=== PATIENT | male | born 1970 | race Caucasian/White ===

== ENCOUNTER 2019-11-30 21:09 | Emergency (ER) | payer MEDICARE ==
[2019-11-30] MEDS ORDERED: NORCO 5/325 MG PO ONE (21:31)
[2019-11-30] MEDS ORDERED: NORCO 5/325 MG ONE (21:35)
--- NOTE | 2019-11-30 21:35 | ERPHSYRPT ---
- History of Present Illness Time Seen by Provider: 11/30/19 21:20 Source: patient Exam Limitations: no limitations Patient Subjective Stated Complaint: pt states that he was working in the yard today when he stepped his foot in a hole and twisted his knee, pt states that he continued to walk on it but the pain has increased throughout the day, pt states that his knee is swollen and warm, pt states that left knee pops everytime it moves Triage Nursing Assessment: pt was wheeled into the er, pt is axo x4, pain 10/10 to left knee, tenderness present to left knee, no swelling present, warm to the touch, limited ROM to left knee, c/o numbness to left knee Physician History: The patient is a 48-year-old male who presents with a chief complaint of left knee pain. Onset was 1500 this afternoon. He reportedly was walking through his yard when he stepped in what is believed to be a hole and "twisted" his left knee. He stated that he felt the pain in the medial aspect of the left knee but was able to weight-bear on the affected extremity for some time until this evening when the pain became worse to the point where he was having trouble weightbearing. The pain is described as a sharp/throbbing pain located to the medial aspect of his left knee that is nonradiating and constant. The pain is reportedly severe. He reports that he is not take anything for pain prior to arrival to emergency department and a family member is outside and providing transportation. He denies falls or any additional injuries this afternoon. He denies injuring the left knee in the past. Timing/Duration: today Associated Symptoms: No nausea, No vomiting Allergies/Adverse Reactions: No Known Drug Allergies Allergy (Unverified 11/30/19 21:24) Hx Tetanus, Diphtheria Vaccination/Date Given: Yes Hx Influenza Vaccination/Date Given: Yes Hx Pneumococcal Vaccination/Date Given: Yes Travel Risk - International Travel Have you traveled outside of the country in past 3 weeks: No If Yes where:: [facility] [place] - Coronavirus Screening Has patient experienced Coronavirus symptoms: No - Review of Systems Constitutional: No Fever, No Chills Musculoskeletal: Injury, Other (Left knee pain), No Deformity All Other Systems: Reviewed and Negative - Past Medical History Pertinent Past Medical History: Yes Neurological History: Migraines ENT History: Other Cardiac History: Aneurysm, Angina, Coronary Artery Disease, Myocardial Infarction ([place]) Respiratory History: Asthma, COPD Endocrine Medical History: No Pertinent History Musculoskeletal History: Fractures GI Medical History: Diverticulitis History: No Pertinent History Psycho-Social History: No Pertinent History Male Reproductive Disorders: No Pertinent History Other Medical History: difficulty hearing. Reports [place]- echo wnl 2015 - Past Surgical History Past Surgical History: Yes Cardiac: Cardiac Catheterization Musculoskeletal: Orthopedic Surgery Other Surgical History: back, knee, wrist, updated - Social History Smoking Status: Current every day smoker How long have you smoked: 31 Exposure to second hand smoke: Yes Alcohol Use: Socially Drug Use: none Patient Lives Alone: No Significant Family History: heart disease, hypertension - Nursing Vital Signs Nursing Vital Signs: Initial Vital Signs Temperature 98.3 F 11/30/19 21:12 Pulse Rate 99 H 11/30/19 21:12 Respiratory Rate 15 11/30/19 21:12 Blood Pressure 170/96 11/30/19 21:12 O2 Sat by Pulse Oximetry 96 11/30/19 21:12 Pain Scale Pain Intensity 6 - Physical Exam General Appearance: no apparent distress, alert Eye Exam: No scleral icterus, No pale conjunctivae Neck Exam: supple Respiratory Exam: normal breath sounds, lungs clear, airway intact, No chest tenderness, No respiratory distress Cardiovascular Exam: regular rate/rhythm, normal heart sounds, capillary refill <2 sec, other (DP and PT was 2+. Capillary refill was brisk in all toes of the left foot.), No murmur, No friction rub, No gallop Gastrointestinal/Abdomen Exam: soft Extremity Exam: normal inspection, tenderness, other (Knee was inspected and there appeared to be no evidence of a visible deformity or swelling. He had tenderness mainly to the medial aspect of the left knee along the MCL but there was no laxity noted with valgus or varus stressing. He was able to extend the left knee and lift the entire left leg off the bed without difficulty. There was increased knee pain with axial loading the left knee/Apley's grind test. I did not feel any clicks or pops with passive flexion and extension of the knee and the patient's Lockman's test was negative. There was no significant tenderness upon palpation of the tibial plateau and the anterior and posterior drawer sign was negative. No significant tenderness upon palpation of the patella. Motor function was intact in the left foot.), No joint swelling, No pedal edema, No swelling Neurologic Exam: alert, oriented x 3, cooperative, other (Sensation in a L4, L5 and S1 nerve root distributions of the left foot was intact.) SpO2: 96 Procedures - Splinting Location of Splint: Knee Type of Splint: Other (Knee immobilizer) Splint Applied By: ED Nurse Pre-Proc Neuro Vasc Exam: normal Post-Proc Neuro Vasc Exam: neurovascular intact, unchanged from pre-exam - Course Nursing assessment & vital signs reviewed: Yes - Radiology Exams Knee X-ray Interpretation: Interpreted by me, Reviewed by me, Negative Ordered Tests: Active Orders 24 hr Category Date Time Status Vance Bandage Application -[facility] STAT Care 11/30/19 22:59 Active Cold Application STAT Care 11/30/19 21:33 Active Crutches STAT Care 11/30/19 22:59 Active Immobilizer STAT Care 11/30/19 22:59 Active Isolation, Initiate & Maintain Q4H Care 11/30/19 21:23 Active KNEE (1 OR 2 VIEW) Stat Exams 11/30/19 21:30 Ordered Medication Summary Discontinued Medications Generic Name Dose Route Start Last Admin Trade Name Terese PRN Reason Stop Dose Admin Hydrocodone Bitart/Acetaminophen 2 tab 11/30/19 21:31 11/30/19 21:37 Harvey 5/325 Mg PO 11/30/19 21:32 2 tab STAT ONE Administration Hydrocodone Bitart/Acetaminophen Confirm 11/30/19 21:35 Harvey 5/325 Mg Administered 11/30/19 21:36 Dose 2 tab .ROUTE .STK-MED ONE - Progress Progress: improved Progress Note: 11/30/19 22:15 The patient presents with left knee pain after reportedly stepping in a hole in his backyard and "twisting" the left knee. Differential at this time includes MCL injury, meniscal injury, fracture, strain or sprain. I have a low suspicion for knee dislocation at this time. I also have a low suspicion for a tibial plateau fracture as well. To obtain a x-ray of the left knee for evaluation and if within normal limits I will see if he can weight-bear on the left knee after receiving Harvey for pain. Given that he has some instability of the left knee, I plan to discharge him home if his x-rays are relatively benign with a knee immobilizer and crutches and have him follow-up in the orthopedic clinic as an outpatient. 11/30/19 23:23 X-ray was reviewed and appeared to show no evidence of fracture or dislocation. The knee was immobilized in a knee immobilizer and given that he reported some instability with walking. I then personally had him demonstrate the ability to weight-bear on the affected knee and he was able to do so with some reported pain but he states that he was feeling better now it is immobilized and after receiving Harvey. I instructed him to follow-up with the orthopedics clinic at this facility this week and to not wear the knee immobilizer while at rest and only wear it whenever he is ambulating. I also instructed him not to wear it any longer than a week due to the risk of developing atrophy to the quadriceps. I will prescribe a short course of Harvey to take as needed for pain. He agreed with and verbally understood the discharge plan. Counseled pt/family regarding: diagnosis, need for follow-up, rad results - Departure Departure Disposition: Home Clinical Impression: Knee pain, left Condition: Good Critical Care Time: No Referrals: ORTHO - KATIE LORA NP [NON-STAFF PHY W/O PRIVILEGES] - Instructions: How to Use Crutches, Knee Immobilizer (DC), Knee Pain (DC) Additional Instructions: Please follow-up with the ortho clinic within a week. Forms: Ortho Referral Prescriptions: Hydrocodone/APAP 5/325 [Harvey 5/325 mg] 1 each PO Q6H PRN PRN #16 tablet MDD 6 PRN Reason: Pain
[2019-11-30 23:07] VITALS: BP 157/85; PULSE 86
[2019-11-30 23:27] VITALS: O2SAT 96
--- NOTE | 2019-12-01 08:43 | XRAY ---
Indication: Pain. Comparison: None AP/lateral left knee demonstrates minimal medial joint space narrowing and tiny patella spurring. No other bony, articular, or soft tissue abnormalities.
== END 2019-11-30 23:15 | disposition home or self-care (01) ==
LOC: ED 21:09
DX: M25.562 Pain in left knee (principal); X50.1XXA Overexertion from prolonged static or awkward postures, initial encounter; Y93.89 Activity, other specified; Y92.89 Other specified places as the place of occurrence of the external cause
CPT/HCPCS: 73560; 99284; L1830; A9270-GY

== ENCOUNTER 2020-02-16 09:18 | Emergency (ER) | payer MEDICARE ==
[2020-02-16 09:48] VITALS: O2SAT 98
[2020-02-16] MEDS ORDERED: solu-MEDROL 125 MG IM ONE (10:09)
[2020-02-16] MEDS ORDERED: solu-MEDROL 125 MG ONE (10:12)
--- NOTE | 2020-02-16 10:15 | ERPHSYRPT ---
- History of Present Illness Time Seen by Provider: 02/16/20 10:09 Source: patient Exam Limitations: no limitations Patient Subjective Stated Complaint: pt here for a chronic rash to hands and feet Triage Nursing Assessment: pt has rash to hadns and feet with skin sloughing on left foot, he has this for [address] 2 weeks ago and given meds, he states they drain at times Physician History: 49 yo wm w h/o pemphigus presents w an outbreak x 5 wks. Pt has seen PCP w steroid injection x2. Pt states that rash is painful and pruritic. He has contacted his rehabilitation supervisor ans is waiting for an appointment. He denies fever/chills/N/V/cough. Timing/Duration: other (5wks) Location: generalized Possible Causes: other (pemphigus) Associated Symptoms: blisters, No change in skin texture, No difficulty breathing, No edema, No fever, No flushing, No headache, No hives, No jaundice, No malaise, No nasal congestion, No numbness, No pallor, No paresthesia, No petechiae Allergies/Adverse Reactions: No Known Drug Allergies Allergy (Verified 02/16/20 09:48) Hx Tetanus, Diphtheria Vaccination/Date Given: Yes Hx Influenza Vaccination/Date Given: Yes Hx Pneumococcal Vaccination/Date Given: Yes Immunizations Up to Date: Yes Travel Risk - International Travel Have you traveled outside of the country in past 3 weeks: No - Coronavirus Screening Are you exhibiting any of the following symptoms?: No Close contact with a COVID-19 positive Pt in past 14-21 Days: No - Review of Systems Constitutional: No Symptoms Eyes: No Symptoms Ears, Nose, & Throat: No Symptoms Respiratory: No Symptoms Cardiac: No Symptoms Abdominal/Gastrointestinal: No Symptoms Genitourinary Symptoms: No Symptoms Musculoskeletal: No Symptoms Neurological: No Symptoms Psychological: No Symptoms Endocrine: No Symptoms Hematologic/Lymphatic: No Symptoms Immunological/Allergic: No Symptoms - Past Medical History Pertinent Past Medical History: Yes Neurological History: Migraines ENT History: Other Cardiac History: Aneurysm, Angina, Coronary Artery Disease, Myocardial Infarction ([place]) Respiratory History: Asthma, COPD Endocrine Medical History: No Pertinent History Musculoskeletal History: Fractures GI Medical History: Diverticulitis History: No Pertinent History Psycho-Social History: No Pertinent History Male Reproductive Disorders: No Pertinent History Other Medical History: difficulty hearing. Reports [place]- echo wnl 2014,knee problesm 2019 - Past Surgical History Past Surgical History: Yes Cardiac: Cardiac Catheterization Musculoskeletal: Orthopedic Surgery Other Surgical History: back, knee, wrist, updated - Social History Smoking Status: Current every day smoker How long have you smoked: 31 Exposure to second hand smoke: Yes Alcohol Use: Socially Drug Use: none Patient Lives Alone: No Significant Family History: heart disease, hypertension - Nursing Vital Signs Nursing Vital Signs: Initial Vital Signs Pulse Rate 71 02/16/20 09:42 Respiratory Rate 18 02/16/20 09:42 Blood Pressure 144/98 02/16/20 09:42 O2 Sat by Pulse Oximetry 97 02/16/20 09:42 Pain Scale Pain Intensity 5 - Physical Exam General Appearance: no apparent distress Eye Exam: PERRL/EOMI, eyes nml inspection Ears, Nose, Throat Exam: normal ENT inspection, TMs normal, pharynx normal Neck Exam: normal inspection, non-tender, supple, No meningismus, No mass, No Brudzinski, No Kernig's Respiratory Exam: other (Occ wheeze and rhonchi B) Cardiovascular Exam: regular rate/rhythm, normal heart sounds, normal peripheral pulses Gastrointestinal/Abdomen Exam: soft, normal bowel sounds, No tenderness, No distention Back Exam: normal inspection Extremity Exam: normal inspection Neurologic Exam: alert, oriented x 3, cooperative, pool coordinator II-XII nml as tested, normal mood/affect, nml station & gait, sensation nml, No motor deficits, No sensory deficit Skin Exam: other (Generalized bullae in various stages/No exudate/No evidence of cellulitis) SpO2 Interpretation: normal SpO2: 98 O2 Delivery: Room Air - Course Nursing assessment & vital signs reviewed: Yes Ordered Tests: Medication Summary Discontinued Medications Generic Name Dose Route Start Last Admin Trade Name Freq PRN Reason Stop Dose Admin Methylprednisolone Sodium Succinate 125 mg 02/16/20 10:09 02/16/20 10:13 Solu-Medrol 125 Mg IM 02/16/20 10:10 125 mg STAT ONE Administration Methylprednisolone Sodium Succinate Confirm 02/16/20 10:12 Solu-Medrol 125 Mg Administered 02/16/20 10:13 Dose 125 mg .ROUTE .STK-MED ONE - Progress Progress: unchanged Progress Note: 02/16/20 10:16 125mg IM solumedrol/Tapering course of steroids Counseled pt/family regarding: need for follow-up - Departure Departure Disposition: Home Clinical Impression: Pemphigus Condition: Fair Critical Care Time: No Referrals: ESE MARRERO MD [Primary Care Provider] - Instructions: Bullous Pemphigoid Additional Instructions: Follow up with your rehabilitation supervisor in AM Prescriptions: Prednisone 20 mg [Deltasone 20 mg] 20 mg PO BID 5 Days #10 tablet
[2020-02-16 10:28] VITALS: BP 149/102; PULSE 78
== END 2020-02-16 10:33 | disposition home or self-care (01) ==
LOC: ED 09:18
DX: L10.9 Pemphigus, unspecified (principal)
CPT/HCPCS: 96372; 99283; J2930

== ENCOUNTER 2020-10-05 03:31 | Emergency (ER) | payer MEDICARE ==
[2020-10-05] MEDS ORDERED: Sodium Chloride 0.9% 1000 ML 1,000 ML IV STA (03:48)
[2020-10-05] MEDS ORDERED: ROCEPHIN 1 Gm-D5w 50 ml Bag** 1 G/50 ML IVPB IV STA (03:50)
[2020-10-05] MEDS ORDERED: ROCEPHIN 1 Gm-D5w 50 ml Bag** 1 G/50 ML IVPB IV ONE (03:55)
[2020-10-05] MEDS ORDERED: Sodium Chloride 0.9% 1000 ML 1,000 ML ONE (03:57)
--- NOTE | 2020-10-05 03:59 | ERPHSYRPT ---
- History of Present Illness Time Seen by Provider: 10/05/20 03:54 Source: patient Exam Limitations: no limitations Physician History: pt noted right leg swelling , then redness and pain, now has fever as well no trauma except blisters on sole of foot which became infected and drained pus - which he soaked in epsom salts and those got better. Method of Injury: unknown Occurred: yesterday Quality: throbbing Severity of Pain-Max: moderate Severity of Pain-Current: moderate Lower Extremities Pain: leg: right Modifying Factors: Improves With: movement Associated Symptoms: none Allergies/Adverse Reactions: No Known Drug Allergies Allergy (Verified 10/05/20 03:36) Home Medications: Diclofenac Sodium 75 mg PO BID 10/05/20 [History] Folic Acid 1 mg [Folate 1 mg] 1 mg PO DAILY 10/05/20 [History] Methotrexate Sodium 2.5 mg [Trexall 2.5 mg] 2.5 mg PO WEEKLY 10/05/20 [History] PANTOPRAZOLE 40 mg Tablet [Protonix 40MG Tablet] 40 mg PO DAILY 10/05/20 [History] Hx Tetanus, Diphtheria Vaccination/Date Given: Yes Hx Influenza Vaccination/Date Given: Yes Hx Pneumococcal Vaccination/Date Given: Yes - Review of Systems Constitutional: No Fever, No Chills Eyes: No Symptoms Ears, Nose, & Throat: No Symptoms Respiratory: No Cough, No Dyspnea Cardiac: No Chest Pain, No Edema, No Syncope Abdominal/Gastrointestinal: No Abdominal Pain, No Nausea, No Vomiting, No Diarrhea Genitourinary Symptoms: No Dysuria Musculoskeletal: No Back Pain, No Neck Pain Skin: Rash (red right anterior lower leg) Neurological: No Dizziness, No Focal Weakness, No Sensory Changes Psychological: No Symptoms Endocrine: No Symptoms Hematologic/Lymphatic: No Symptoms Immunological/Allergic: Other (psoriasis Tx methotrexate) All Other Systems: Reviewed and Negative - Past Medical History Pertinent Past Medical History: Yes Neurological History: Migraines ENT History: Other Cardiac History: Aneurysm, Angina, Coronary Artery Disease, Myocardial Infarction ([place]) Respiratory History: Asthma, COPD Endocrine Medical History: No Pertinent History Musculoskeletal History: Fractures GI Medical History: Diverticulitis History: No Pertinent History Psycho-Social History: No Pertinent History Male Reproductive Disorders: No Pertinent History Other Medical History: difficulty hearing. Reports [place]- echo WNL 2014, Knee Problems 2019 - Past Surgical History Past Surgical History: Yes Neuro Surgical History: No Pertinent History Cardiac: Cardiac Catheterization Respiratory: No Pertinent History Gastrointestinal: No Pertinent History Genitourinary: No Pertinent History Musculoskeletal: Orthopedic Surgery Male Surgical History: No Pertinent History Other Surgical History: back, knee, wrist, updated - Social History Smoking Status: Current every day smoker How long have you smoked: 31 Exposure to second hand smoke: Yes Alcohol Use: Socially Drug Use: none Patient Lives Alone: No Significant Family History: heart disease, hypertension - Nursing Vital Signs Nursing Vital Signs: Initial Vital Signs Temperature 99.5 F 10/05/20 03:42 Pulse Rate 93 H 10/05/20 03:42 Respiratory Rate 18 10/05/20 03:42 Blood Pressure 139/95 10/05/20 03:42 O2 Sat by Pulse Oximetry 95 10/05/20 03:42 Pain Scale Pain Intensity 7 - Physical Exam General Appearance: alert Eyes, Ears, Nose, Throat Exam: moist mucous membranes Neck Exam: non-tender, supple Cardiovascular/Respiratory Exam: chest non-tender, normal breath sounds, regular rate/rhythm, no respiratory distress Gastrointestinal/Abdominal Exam: non-tender, guarding Back Exam: normal inspection, No vertebral tenderness Hips Exam: bilateral: non-tender, normal inspection, normal range of motion, no evidence of injury Legs Exam: right leg: pain, soft tissue tenderness, swelling, other (red rash/cellulitis), left leg: non-tender, normal inspection, normal range of motion, no evidence of injury Knees Exam: bilateral knee: non-tender, normal inspection, normal range of motion, no evidence of injury Ankle Exam: bilateral ankle: non-tender, normal inspection, normal range of motion, no evidence of injury Foot Exam: right foot: other (blisters sole), left foot: non-tender, normal inspection, normal range of motion, no evidence of injury Neuro/Tendon Exam: normal sensation, normal motor functions Mental Status Exam: alert, oriented x 3, cooperative Skin Exam: normal color, warm, dry SpO2: 97 - Course Nursing assessment & vital signs reviewed: Yes - Radiology Ultrasound Exam Right Venous Lower Extremity Ultrasound: Other (no DVT reported) Ordered Tests: Active Orders 24 hr Category Date Time Status IV Insertion STAT Care 10/05/20 03:48 Active VENOUS UNILAT/LIMITED EXTREMIT [US] Stat Exams 10/05/20 03:51 Ordered CBC W DIFF Stat Lab 10/05/20 04:00 Completed Medication Summary Discontinued Medications Generic Name Dose Route Start Last Admin Trade Name Terese PRN Reason Stop Dose Admin Sodium Chloride 1,000 mls @ 999 mls/hr 10/05/20 03:48 10/05/20 04:01 Sodium Chloride 0.9% 1000 Ml IV 10/05/20 04:48 999 mls/hr .Q1H1M STA Administration Ceftriaxone Sodium/Dextrose 1 g in 50 mls @ 100 mls/hr 10/05/20 03:50 10/05/20 04:48 Rocephin 1 Gm-D5w 50 Ml Bag IV 10/05/20 04:19 Infused STAT STA Infusion Ceftriaxone Sodium/Dextrose Confirm 10/05/20 03:55 Rocephin 1 Gm-D5w 50 Ml Bag Administered 10/05/20 03:56 Dose 1 g in 50 mls @ ud IV .STK-MED ONE Sodium Chloride Confirm 10/05/20 03:57 Sodium Chloride 0.9% 1000 Ml Administered 10/05/20 03:58 Dose 1,000 mls @ ud .ROUTE .STK-MED ONE Lab/Rad Data: Laboratory Result Diagrams 10/05/20 04:00 Laboratory Results 10/05/20 Range/Units 04:00 WBC 15.5 H (4.0-10.5) K/mm3 RBC 4.44 (4.1-5.6) M/mm3 Hgb 14.1 (12.5-18.0) gm/dl Hct 42.1 (42-50) % MCV 94.8 (78-100) fl MCH 31.8 (26-32) pg MCHC 33.5 (32-36) g/dl RDW 15.4 H (11.5-14.0) % Plt Count 167 (150-450) K/mm3 MPV 11.1 H (7.5-11.0) fl Gran % 75.3 H (36.0-66.0) % Eos # (Auto) 0.15 (0-0.5) Absolute Lymphs (auto) 2.16 (1.0-4.6) Absolute Monos (auto) 1.46 H (0.0-1.3) Lymphocytes % 14.0 L (24.0-44.0) % Monocytes % 9.4 (0.0-12.0) % Eosinophils % 1.0 (0.00-5.0) % Basophils % 0.3 (0.0-0.4) % Absolute Granulocytes 11.66 H (1.4-6.9) Basophils # 0.05 (0-0.4) - Progress Progress: improved, re-examined Progress Note: 10/05/20 05:05 discussed admission vs outpt tx with pt and he would like to try outpt and will see his DrMirna later to day to chely progress and return meantime if not improving. Counseled pt/family regarding: lab results, diagnosis, need for follow-up, rad results - Departure Departure Disposition: Home Clinical Impression: Cellulitis of right leg Condition: Good Critical Care Time: No Referrals: ESE MARRERO MD [Primary Care Provider] - Instructions: Cellulitis (Skin Infection), Adult (DC) Additional Instructions: THere is some elevation of your blood count and fever which are signs of infe ction . Therefore it is important to follow-up with your DrMirna for your leg infection tomorrow to confirm improvement and adjust therapy. Sometimes repeated injections of the rocephin are required or even other antibiotics. return meantime if not improving. increased pain , numbness, or other symptoms of concern. Prescriptions: Mupirocin [Bactroban OINTMENT] 22 gm TP BID #1 tube Cephalexin Mh 500 mg [Keflex 500 mg] 500 mg PO TID #30 capsule Doxycycline Hyclate 100 mg [Vibramycin 100 MG] 100 mg PO BID #20 tab
[2020-10-05 04:12] LABS: Absolute Neutrophil Ct (ANC) 11.66 (1.4-6.9); BASOPHIL % 0.3 % (0.0-0.4); Basophil (Absolute #) 0.05 (0-0.4); Eosinophil (Absolute #) 0.15 (0-0.5); Hematocrit 42.1 % (42-50); Hemoglobin 14.1 gm/dl (12.5-18.0); Lymphocyte (Absolute #) 2.16 (1.0-4.6); Mean Cell Volume 94.8 fl (78-100); Mean Corpuscular Hemoglobin 31.8 pg (26-32); Mean Corpuscular Hgb Concent. 33.5 g/dl (32-36); Mean Platelet Volume 11.1 fl (7.5-11.0); Monocyte (Absolute #) 1.46 (0.0-1.3); Monocytes % 9.4 % (0.0-12.0); Neutrophil % 75.3 % (36.0-66.0); Platelet Count 167 K/mm3 (150-450); Red Blood Count 4.44 M/mm3 (4.1-5.6); Red Cell Distribution Width 15.4 % (11.5-14.0); White Blood Count 15.5 K/mm3 (4.0-10.5)
[2020-10-05 05:06] VITALS: BP 124/78; PULSE 82
[2020-10-05 05:09] VITALS: O2SAT 97
--- NOTE | 2020-10-05 09:28 | XRAY ---
Indication: Pain, erythema, and swelling. Two-dimensional sonogram and color Doppler imaging of the major venous vessels of the right leg was performed. Comparison: None No thrombus seen in the visualized deep venous vessels of the right leg including greater saphenous vein. Veins demonstrate normal compressibility. Venous waveforms are normal with and without augmentation. Targeted soft tissue ultrasound superior medial to the ankle demonstrates mild subcutaneous venous varicosities. No focal solid/cystic mass or abnormal fluid collection. Impression: Right leg negative for DVT.
== END 2020-10-05 05:20 | disposition home or self-care (01) ==
LOC: ED 03:31
DX: L03.115 Cellulitis of right lower limb (principal); M79.661 Pain in right lower leg; M79.89 Other specified soft tissue disorders
CPT/HCPCS: 36000; 36415; 85025; 93971; 96360; 99284; J0696

== ENCOUNTER 2021-11-10 17:55 | Emergency (ER) | payer MEDICARE ==
[2021-11-10 19:15] VITALS: BP 152/93
--- NOTE | 2021-11-10 19:25 | ERPHSYRPT ---
- History of Present Illness Time Seen by Provider: 11/10/21 18:10 Exam Limitations: no limitations Patient Subjective Stated Complaint: right foot pain/injury Triage Nursing Assessment: pt ambulated back to room per self, alert and oriented x 3, pt stated he was walking in the house and "rolled" ankle and felt a "pop" on right edge of foot, rating pain sharp, stabbing and throbbing 9/10, right foot has moderate edema. Physician History: Patient is a 50-year-old male presents to our ED with complaints of pain to his right lateral foot. Patient states he was ambulating in his house when he inverted his foot. Patient felt a pop. The pop was followed by immediate pain. Pain described as a stabbing throbbing sensation rated 9 out of 10.No other injuries reported. Pain worse with ambulation and palpation. Pain improved with rest.No other injuries reported. Patient voices no other complaints or concerns at this time. Method of Injury: twisted Occurred: just prior to arrival Quality: constant Severity of Pain-Max: moderate Severity of Pain-Current: mild Lower Extremities Pain: foot: right Modifying Factors: Improves With: movement (Weightbearing) Associated Symptoms: none Allergies/Adverse Reactions: No Known Drug Allergies Allergy (Verified 11/10/21 19:08) Home Medications: Diclofenac Sodium 75 mg PO BID 10/05/20 [History] Folic Acid 1 mg [Folate 1 mg] 1 mg PO DAILY 10/05/20 [History] Methotrexate Sodium 2.5 mg [Trexall 2.5 mg] 2.5 mg PO WEEKLY 10/05/20 [History] PANTOPRAZOLE 40 mg Tablet [Protonix 40MG Tablet] 40 mg PO DAILY 10/05/20 [History] Hx Tetanus, Diphtheria Vaccination/Date Given: Yes (6 years ago) Hx Influenza Vaccination/Date Given: No Hx Pneumococcal Vaccination/Date Given: Yes Travel Risk - International Travel Have you traveled outside of the country in past 3 weeks: No - Coronavirus Screening Are you exhibiting any of the following symptoms?: No Close contact with a COVID-19 positive Pt in past 14-21 Days: No - Vaccine Status Have you recieved a Covid-19 vaccination: Yes 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 - Review of Systems Constitutional: No Symptoms, No Fever, No Chills Eyes: No Symptoms Ears, Nose, & Throat: No Symptoms Respiratory: No Symptoms, No Cough, No Dyspnea Cardiac: No Symptoms, No Chest Pain, No Edema, No Syncope Abdominal/Gastrointestinal: No Symptoms, No Abdominal Pain, No Nausea, No Vomiting, No Diarrhea Genitourinary Symptoms: No Symptoms, No Dysuria Musculoskeletal: No Symptoms, No Back Pain, No Neck Pain Skin: No Symptoms, No Rash Neurological: No Symptoms, No Dizziness, No Focal Weakness, No Sensory Changes Psychological: No Symptoms Endocrine: No Symptoms Hematologic/Lymphatic: No Symptoms Immunological/Allergic: No Symptoms All Other Systems: Reviewed and Negative - Past Medical History Pertinent Past Medical History: Yes Neurological History: Migraines ENT History: Other Cardiac History: Aneurysm, Angina, Coronary Artery Disease, Myocardial Infarction ([place]) Respiratory History: Asthma, COPD Endocrine Medical History: No Pertinent History Musculoskeletal History: Fractures GI Medical History: Diverticulitis History: No Pertinent History Psycho-Social History: No Pertinent History Male Reproductive Disorders: No Pertinent History Other Medical History: difficulty hearing. Reports [place]- echo WNL 2014, Knee Problems 2019 - Past Surgical History Past Surgical History: Yes Neuro Surgical History: No Pertinent History Cardiac: Cardiac Catheterization Respiratory: No Pertinent History Gastrointestinal: No Pertinent History Genitourinary: No Pertinent History Musculoskeletal: Orthopedic Surgery Male Surgical History: No Pertinent History Other Surgical History: back, knee, wrist - Social History Smoking Status: Current every day smoker How long have you smoked: 38 years Exposure to second hand smoke: No Alcohol Use: Socially Drug Use: none Patient Lives Alone: No Significant Family History: heart disease, hypertension - Nursing Vital Signs Nursing Vital Signs: Initial Vital Signs Temperature 97.9 F 11/10/21 18:01 Pulse Rate 73 11/10/21 18:01 Respiratory Rate 20 11/10/21 18:01 Blood Pressure 144/91 11/10/21 18:01 O2 Sat by Pulse Oximetry 98 11/10/21 18:01 Pain Scale Pain Intensity 8 - Physical Exam General Appearance: no apparent distress, alert Eyes, Ears, Nose, Throat Exam: normal ENT inspection, TMs normal, pharynx normal, moist mucous membranes Neck Exam: normal inspection, non-tender, supple, full range of motion Cardiovascular/Respiratory Exam: chest non-tender, normal breath sounds, regular rate/rhythm, heart sounds normal, no respiratory distress Gastrointestinal/Abdominal Exam: non-tender, soft, No guarding Back Exam: normal inspection, normal range of motion, No CVA tenderness, No vertebral tenderness Hips Exam: bilateral: non-tender, normal inspection, normal range of motion, no evidence of injury Legs Exam: bilateral leg: non-tender, normal inspection, normal range of motion, no evidence of injury Knees Exam: bilateral knee: non-tender, normal inspection, normal range of motion, no evidence of injury Ankle Exam: right ankle: soft tissue tenderness, left ankle: non-tender, normal inspection, normal range of motion, no evidence of injury Foot Exam: right foot: pain, soft tissue tenderness, swelling, other (Tenderness to palpation over the proximal fifth metatarsal. There is localized hematoma. No open or draining lesions.Extremities neurovascular tact distally. Compartments are soft cap refill less than 2 seconds.), left foot: non-tender, normal inspection, normal range of motion, no evidence of injury Neuro/Tendon Exam: normal sensation, normal motor functions, normal tendon functions Mental Status Exam: alert, oriented x 3, cooperative Skin Exam: normal color, warm, dry SpO2 Interpretation: normal SpO2: 96 O2 Delivery: Room Air - Course Nursing assessment & vital signs reviewed: Yes - Radiology Exams Foot X-ray Interpretation: Interpreted by me (Right fifth metatarsal transverse metaphyseal fracture., Pal fracture, osteopenia, os trigonum with the small heel spur) Ordered Tests: Active Orders 24 hr Category Date Time Status Crutches STAT Care 11/10/21 19:21 Active Splint STAT Care 11/10/21 19:21 Active ANKLE (3 VIEWS) Stat Exams 11/10/21 Taken FOOT (MINIMUM 3 VIEWS) Stat Exams 11/10/21 Taken Medication Summary Discontinued Medications Generic Name Dose Route Start Last Admin Trade Name Freq PRN Reason Stop Dose Admin Ketorolac Tromethamine 30 mg 11/10/21 19:24 Ketorolac Tromethamine 30 Mg/Ml Inj IM 11/10/21 19:25 STAT ONE - Progress Progress: improved Progress Note: 11/10/21 19:36 Patient reassessed. Pain improved. X-ray shows a Pal fracture. Patient's right foot immobilized. Patient given bilateral axillary crutches. Patient referred to the orthopedic clinic. Follow-up orthopedic clinic scheduled for tomorrow. Patient agrees to follow-up as scheduled. No other issues reported. Patient voices no other complaints or concerns at this time. [id number] analgesics as needed. Portions of this note were created with voice recognition technology. There may be grammatical, spelling, punctuation or sound alike errors Counseled pt/family regarding: diagnosis, need for follow-up, rad results - Departure Departure Disposition: Home Clinical Impression: Pal fracture, Heel spur Condition: Stable Critical Care Time: No Referrals: ESE MARRERO MD [Primary Care Provider] - Follow up/PCP as directed Additional Instructions: Discharge/Care Plan REID CHOU was seen on 11/10/21 in the Emergency Room. The patient was counseled regarding Diagnosis,Lab results, Imaging studies, need for follow up and when to return to the Emergency Room. Prescriptions given: Discharge Note I have spoken with the patient and/or caregivers. I have explained the patient's condition, diagnosis and treatment plan based on the information available to me at this time. I have answered the patient's and/or caregiver's questions and addressed any concerns. The patient and/or caregivers have as good understanding of the patient's diagnosis, condition and treatment plan as can be expected at this point. The vital signs have been stable. The patient's condition is stable and appropriate for discharge from the emergency department. The patient will pursue further outpatient evaluation with the primary care physician or other designated or consulting physician as outlined in the discharge instructions. The patient and/or caregivers are agreeable to this plan of care and follow-up instructions have been explained in detail. The patient and/or caregivers have received these instruction. The patient/and or caregivers are aware that any significant change in condition or worsening of symptoms should prompt an immediate return to this or the closest emergency department or call 911. Outpatient Orders: Ortho Referral Time Frame: 1 Day, Facility: [facility], Location: ORTHO CLINIC
[2021-11-10] MEDS ORDERED: TORAdol 30 mg Injection ONE (19:27)
[2021-11-10] MEDS: TORAdol 30 mg Injection IM ONE (19:28)
[2021-11-10 19:45] VITALS: PULSE 76; O2SAT 98
--- NOTE | 2021-11-11 08:42 | XRAY ---
Indication: Edema following injury. Comparison: None 3 view right ankle demonstrates mild osteopenia and tiny plantar heel spur. No other bony, articular, or soft tissue abnormalities.
--- NOTE | 2021-11-11 08:43 | XRAY ---
Indication: Edema following injury. Comparison: None 3 nonweightbearing views right foot demonstrates nondisplaced hairline fracture proximal shaft 5th metatarsal with soft tissue swelling. Elsewhere mild osteopenia and tiny plantar heel spur. No other bony, articular, or soft tissue abnormalities.
== END 2021-11-10 19:46 | disposition home or self-care (01) ==
LOC: ED 17:55
DX: S62.356A Nondisplaced fracture of shaft of fifth metacarpal bone, right hand, initial encounter for closed fracture (principal); X50.0XXA Overexertion from strenuous movement or load, initial encounter; M77.31 Calcaneal spur, right foot; M79.671 Pain in right foot; J44.9 Chronic obstructive pulmonary disease, unspecified; I25.10 Atherosclerotic heart disease of native coronary artery without angina pectoris; Z72.0 Tobacco use; Z79.899 Other long term (current) drug therapy
CPT/HCPCS: 73610; 73630; 96372; 99284; J1885; L4386

== ENCOUNTER 2022-09-30 13:23 | Emergency (ER) | payer MEDICARE ==
[2022-09-30] MEDS ORDERED: Sodium Chloride 0.9% 1000 ML 1,000 ML IV STA (13:37)
[2022-09-30 13:52] LABS: Absolute Neutrophil Ct (ANC) 8.23 x10^3/uL (1.4-6.9); BASOPHIL % 0.4 % (0.0-0.4); Basophil (Absolute #) 0.04 x10^3/uL (0-0.4); Eosinophil % 1.7 % (0.00-5.0); Eosinophil (Absolute #) 0.19 x10^3/uL (0-0.5); Hematocrit 39.1 % (42-50); IMMATURE GRAN # 0.06 x10^3u/L (0.00-0.03); IMMATURE GRAN % 0.5 % (0.00-0.4); Lymphocyte (Absolute #) 1.68 x10^3/uL (1.0-4.6); Lymphocytes % 15.2 % (24.0-44.0); Mean Cell Volume 93.8 fL (78-100); Mean Corpuscular Hemoglobin 31.2 pg (26-32); Mean Corpuscular Hgb Concent. 33.2 g/dL (32-36); Monocyte (Absolute #) 0.85 x10^3/uL (0.0-1.3); Monocytes % 7.7 % (0.0-12.0); Neutrophil % 74.5 % (36.0-66.0); Platelet Count 229 x10^3/uL (150-450); Red Blood Count 4.17 x10^6/uL (4.1-5.6); Red Cell Distribution Width 14.9 % (11.5-14.0); White Blood Count 11.1 x10^3/uL (4.0-10.5)
[2022-09-30] MEDS ORDERED: Sodium Chloride 0.9% 1000 ML 1,000 ML ONE (14:07)
[2022-09-30 14:08] LABS: ALBUMIN 3.8 g/dL (3.5-5.0); ALKALINE PHOSPHATASE 97 U/L (38-126); AMYLASE 53 U/L (30-110); ANION GAP 10.5 MEQ/L (5-15); BLOOD UREA NITROGEN 6 mg/dL (9-20); CHLORIDE 110 mmol/L (98-107); Calcium 8.5 mg/dL (8.4-10.2); Carbon Dioxide 22 mmol/L (22-30); Creatinine 1 0.62 mg/dL (0.66-1.25); EST GLOMERULAR FILTRATION RATE > 60.0 ML/MIN; Glucose 102 mg/dL (74-106); LIPASE 56 U/L (23-300); Potassium 3.5 mmol/L (3.5-5.1); SGOT/AST 22 U/L (17-59); SGPT/ALT 23 U/L (0-50); SODIUM 140 mmol/L (137-145); Total Protein 7.4 g/dL (6.3-8.2)
--- NOTE | 2022-09-30 15:02 | XRAY ---
Indication: Abdomen pain and nausea. Multiple contiguous axial images obtained through the abdomen and pelvis using 80 cc Isovue 370 contrast. Comparison: September 22, 2014 Lung bases demonstrates minimal dependent atelectasis. No infiltrate or effusion. Heart not enlarged. Again small hiatal hernia. Noncontrasted stomach and bowel loops nonobstructed with normal appendix. There remains scattered descending and sigmoid diverticulosis. Mid to distal descending and proximal sigmoid colon again demonstrates mild wall thickening with mild pericolonic stranding favoring recurrent acute diverticulitis. Tiny fluid left colic gutter but no walled off fluid collection or free air. New 2 cm right mid renal cyst. Stable 6 mm right lobe hepatic cyst. Remaining liver, gallbladder, pancreas, spleen, adrenal glands, kidneys, ureters, bladder, and aorta are unremarkable. No pathologic rectoperineal lymphadenopathy. Osseous structures intact again with mild L4-S1 degenerative changes. Impression: 1. Again colonic diverticulosis with recurrent mild diverticulitis involving the descending and sigmoid colon. Tiny free fluid but no free air. 2. New right renal cyst with stable tiny hepatic cyst. 3. Again incidental small hiatal hernia.
[2022-09-30 15:04] VITALS: O2SAT 99
[2022-09-30 15:17] LABS: Appearance Clear (Clear); Bacteria None Seen /HPF (None Seen); Bilirubin Negative (Negative); Blood Negative (Negative); Epithelial Cells None Seen /HPF (None Seen); Glucose, Urine Negative (Negative); Hyaline Casts NONE SEEN /LPF (0-2); Ketones Trace (Negative); Leukocyte Esterase Negative (Negative); Nitrite Negative (Negative); Protein,Urine Dip Trace (Negative); RBC 0-2 /HPF (0-5); Specific Gravity >=1.030 (1.005-1.030); WBC 0-2 /HPF (0-5)
[2022-09-30 15:19] LABS: ADD URINE CULTURE? NO (NO)
--- NOTE | 2022-09-30 15:28 | ERPHSYRPT ---
- History of Present Illness Time Seen by Provider: 09/30/22 13:40 Historian: patient Exam Limitations: no limitations Patient Subjective Stated Complaint: C/O lower abdominal pain Triage Nursing Assessment: Patient ambulated back to ER without difficulties. No SOB. He is alert and oriented. No skin alterations noted to abdomen. Abdomen is soft. KARTHIK WHITING. Physician History: Patient is a 51-year-old white male who presents with lower abdominal pain she describes as sharp and stabbing. He denies any nausea vomiting diarrhea he denies fever chills or sweats no constipation no previous abdominal surgeries. Timing/Duration: day(s) (3) Activities at Onset: none Quality: sharpness, stabbing Abdominal Pain Onset Location: LLQ, suprapubic Pain Radiation: no radiation Severity of Pain-Max: moderate Severity of Pain-Current: moderate Modifying Factors: Improves With: movement Previous symptoms: no prior history Allergies/Adverse Reactions: No Known Drug Allergies Allergy (Verified 09/30/22 13:32) Home Medications: Folic Acid 1 mg [Folate 1 mg] 1 mg PO DAILY 10/05/20 [History] Methotrexate Sodium 2.5 mg [Trexall 2.5 mg] 2.5 mg PO WEEKLY 10/05/20 [History] PANTOPRAZOLE 40 mg Tablet [Protonix 40MG Tablet] 40 mg PO DAILY 10/05/20 [History] Aspirin EC 81 mg [Ecotrin 81 mg] 1 tab PO DAILY 09/30/22 [History] Atorvastatin Calcium [Lipitor] 1 tab PO DAILY 09/30/22 [History] Hx Tetanus, Diphtheria Vaccination/Date Given: Yes Hx Influenza Vaccination/Date Given: No Hx Pneumococcal Vaccination/Date Given: Yes Immunizations Up to Date: Yes Travel Risk - International Travel Have you traveled outside of the country in past 3 weeks: No - Coronavirus Screening Are you exhibiting any of the following symptoms?: No Close contact with a COVID-19 positive Pt in past 14-21 Days: No - Vaccine Status Have you recieved a Covid-19 vaccination: Yes 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: [place] - Review of Systems Constitutional: No Fever, No Chills Eyes: No Symptoms Ears, Nose, & Throat: No Symptoms Respiratory: No Cough, No Dyspnea Cardiac: No Chest Pain, No Edema, No Syncope Abdominal/Gastrointestinal: Abdominal Pain, No Nausea, No Vomiting, No Diarrhea Genitourinary Symptoms: No Dysuria Musculoskeletal: No Back Pain, No Neck Pain Skin: No Rash Neurological: No Dizziness, No Focal Weakness, No Sensory Changes Psychological: No Symptoms Endocrine: No Symptoms All Other Systems: Reviewed and Negative - Past Medical History Pertinent Past Medical History: Yes Neurological History: Migraines ENT History: Other Cardiac History: Aneurysm, Angina, Coronary Artery Disease, High Cholesterol, Myocardial Infarction ([place]) Respiratory History: Asthma, COPD Endocrine Medical History: No Pertinent History Musculoskeletal History: Fractures GI Medical History: Diverticulitis, GERD History: No Pertinent History Psycho-Social History: No Pertinent History Male Reproductive Disorders: No Pertinent History Other Medical History: difficulty hearing, Knee Problems, elephantitis - Past Surgical History Past Surgical History: Yes Neuro Surgical History: No Pertinent History Cardiac: Cardiac Catheterization Respiratory: No Pertinent History Gastrointestinal: No Pertinent History Genitourinary: No Pertinent History Musculoskeletal: Orthopedic Surgery Male Surgical History: No Pertinent History Other Surgical History: back, knee, wrist - Social History Smoking Status: Current every day smoker How long have you smoked: 39 years Exposure to second hand smoke: No Alcohol Use: Socially Drug Use: none Patient Lives Alone: No Significant Family History: heart disease, hypertension - Nursing Vital Signs Nursing Vital Signs: Initial Vital Signs Temperature 99.5 F 09/30/22 13:33 Pulse Rate 69 09/30/22 13:33 Respiratory Rate 19 09/30/22 13:33 Blood Pressure 125/83 09/30/22 13:33 O2 Sat by Pulse Oximetry 96 09/30/22 13:33 Pain Scale Pain Intensity 10 - Physical Exam General Appearance: no apparent distress, alert Eye Exam: PERRL/EOMI, eyes nml inspection Ears, Nose, Throat Exam: normal ENT inspection, pharynx normal, moist mucous membranes Neck Exam: normal inspection, non-tender, supple, full range of motion Respiratory Exam: normal breath sounds, lungs clear, No respiratory distress Cardiovascular Exam: regular rate/rhythm, normal heart sounds Gastrointestinal/Abdomen Exam: soft, normal bowel sounds, tenderness, guarding, No mass, No rebound Male Genitalia Exam: normal genitalia Back Exam: normal inspection, normal range of motion, No CVA tenderness, No vert ebral tenderness Extremity Exam: normal inspection, normal range of motion, pelvis stable Neurologic Exam: alert, oriented x 3, cooperative, normal mood/affect, nml cerebellar function, sensation nml, No motor deficits Skin Exam: normal color, warm, dry SpO2: 99 - Course Nursing assessment & vital signs reviewed: Yes - CT Exams Abdomen/Pelvis CT Interpretation: Other (Reviewed the films and interpretation CT shows diverticulitis) Ordered Tests: Active Orders 24 hr Category Date Time Status IV Insertion STAT Care 09/30/22 13:37 Active ABDOMEN AND PELVIS W CONTRAST [CT] Stat Exams 09/30/22 13:37 Completed AMYLASE Stat Lab 09/30/22 13:51 Completed CBC W DIFF Stat Lab 09/30/22 13:51 Completed CMP Stat Lab 09/30/22 13:51 Completed LIPASE Stat Lab 09/30/22 13:51 Completed Lactic Acid Stat Lab 09/30/22 13:51 Completed UA W/RFX UR CULTURE Stat Lab 09/30/22 15:04 Ordered Urine Triage Profile Stat Lab 09/30/22 15:04 Ordered Medication Summary Discontinued Medications Generic Name Dose Route Start Last Admin Trade Name Terese PRN Reason Stop Dose Admin Sodium Chloride 1,000 mls @ 999 mls/hr 09/30/22 13:37 09/30/22 14:07 Sodium Chloride 0.9% 1000 Ml IV 09/30/22 14:37 999 mls/hr .Q1H1M STA Administration Sodium Chloride Confirm 09/30/22 14:07 Sodium Chloride 0.9% 1000 Ml Administered 09/30/22 14:08 Dose 1,000 mls @ ud .ROUTE .STK-MED ONE Lab/Rad Data: Laboratory Result Diagrams 09/30/22 13:51 09/30/22 13:51 Laboratory Results 09/30/22 09/30/22 09/30/22 Range/Units 13:51 13:51 13:51 WBC 11.1 H (4.0-10.5) x10^3/uL RBC 4.17 (4.1-5.6) x10^6/uL Hgb 13.0 (12.5-18.0) g/dL Hct 39.1 L (42-50) % MCV 93.8 (78-100) fL MCH 31.2 (26-32) pg MCHC 33.2 (32-36) g/dL RDW 14.9 H (11.5-14.0) % Plt Count 229 (150-450) x10^3/uL MPV 10.0 (7.5-11.0) fL Gran % 74.5 H (36.0-66.0) % Immature Gran % (Auto) 0.5 H (0.00-0.4) % Nucleat RBC Rel Count 0.0 (0.00-0.1) % Eos # (Auto) 0.19 (0-0.5) x10^3/uL Immature Gran # (Auto) 0.06 H (0.00-0.03) x10^3u/L Absolute Lymphs (auto) 1.68 (1.0-4.6) x10^3/uL Absolute Monos (auto) 0.85 (0.0-1.3) x10^3/uL Absolute Nucleated RBC 0.00 (0.00-0.01) x10^3u/L Lymphocytes % 15.2 L (24.0-44.0) % Monocytes % 7.7 (0.0-12.0) % Eosinophils % 1.7 (0.00-5.0) % Basophils % 0.4 (0.0-0.4) % Absolute Granulocytes 8.23 H (1.4-6.9) x10^3/uL Basophils # 0.04 (0-0.4) x10^3/uL Sodium 140 (137-145) mmol/L Potassium 3.5 (3.5-5.1) mmol/L Chloride 110 H (98-107) mmol/L Carbon Dioxide 22 (22-30) mmol/L Anion Gap 10.5 (5-15) MEQ/L BUN 6 L (9-20) mg/dL Creatinine 0.62 L (0.66-1.25) mg/dL Estimated GFR > 60.0 ML/MIN Glucose 102 (74-106) mg/dL Lactic Acid 0.7 (0.4-2.0) Calcium 8.5 (8.4-10.2) mg/dL Total Bilirubin 1.20 (0.2-1.3) mg/dL AST 22 (17-59) U/L ALT 23 (0-50) U/L Alkaline Phosphatase 97 (38-126) U/L Serum Total Protein 7.4 (6.3-8.2) g/dL Albumin 3.8 (3.5-5.0) g/dL Amylase 53 (30-110) U/L Lipase 56 (23-300) U/L - Progress Progress: unchanged Medical Desision Making - Diagnostic Testing Diagnostic test were ordered, analyzed, and reviewed by me: Yes Radiological Interpretation: Reviewed by me - Risk of complications Low Risk: Low risk of morbidity from additional dx testing or treatment The pt has a mod risk of morbidity or mortality based on: Need for prescription drug management - Departure Departure Disposition: Home Clinical Impression: Diverticulitis Condition: Stable Critical Care Time: No Referrals: ESE MARRERO MD [Primary Care Provider] - Follow up/PCP as directed Instructions: Diverticulitis (DC) Prescriptions: Amox Tr/Potass Clav. 875 mg [Augmentin 875-125 Tablet] 875 mg PO BID 10 Days #20 tablet Metronidazole 500 mg [Flagyl 500 MG] 500 mg PO TID #21 tablet Hydrocodone/Acetaminophen [Hydrocodone-Acetamin 7.5-325] 1 each PO Q6H 3 Days #12 tablet MDD 4
[2022-09-30 15:30] LABS: Amphetamine,Urine NEGATIVE (NEGATIVE); Barbiturate,Urine NEGATIVE (NEGATIVE); Benzodiazepine,Urine NEGATIVE (NEGATIVE); Cocaine,Urine NEGATIVE (NEGATIVE); Methadone,Urine NEGATIVE (NEGATIVE); Opiate,Urine NEGATIVE (NEGATIVE); PCP,Urine NEGATIVE (NEGATIVE); THC,Urine NEGATIVE (NEGATIVE)
[2022-09-30 15:33] VITALS: BP 138/76; PULSE 74
== END 2022-09-30 15:44 | disposition home or self-care (01) ==
LOC: ED 13:23
DX: K57.92 Diverticulitis of intestine, part unspecified, without perforation or abscess without bleeding (principal); R10.30 Lower abdominal pain, unspecified; Z79.891 Long term (current) use of opiate analgesic; Z79.899 Other long term (current) drug therapy; E78.5 Hyperlipidemia, unspecified; Z72.0 Tobacco use
CPT/HCPCS: 36000; 36415; 74177; 80053; 80307; 81001; 82150; 83605; 83690; 85025; 99284

== ENCOUNTER 2023-05-17 08:45 | Emergency (ER) | payer MEDICARE ==
--- NOTE | 2023-05-17 08:50 | ERPHSYRPT ---
- History of Present Illness Time Seen by Provider: 05/17/23 08:50 Source: patient Exam Limitations: no limitations Physician History: This is a 52-year-old white male patient of Dr. Marrero who presents to the emergency department with what he describes as generalized muscle "stiffness". When asked, he states that he is having body wide aches and pains that are so se omi it is making him difficult to get up walk or move. He has not had any fever. He has not had any nausea vomiting or diarrhea. He does have a history of arthritis. He used to take methotrexate and folic acid for a skin condition but no longer takes that medication. Patient is a daily smoker of cigarettes. He has no known drug allergies. The symptoms started 2 days ago but were much worse this morning. It was significant enough for a he felt he could not move without generalized aching pain. Patient has a history of hyperlipidemia, he has a history of gastroesophageal reflux disease and chronic angina. He has a history of COPD and asthma and coronary artery disease. He denies chest pain. He denies cough. He denies new medication use. He denies illicit drug use. He denies alcohol use. Timing/Duration: day(s) (2), worse Severity: moderate Modifying Factors: Improves With: immobilization (Worsens improves), movement Associated Symptoms: denies symptoms Allergies/Adverse Reactions: Penicillins Allergy (Verified 09/30/22 16:44) Home Medications: Folic Acid 1 mg [Folate 1 mg] 1 mg PO DAILY 10/05/20 [History] Methotrexate Sodium 2.5 mg [Trexall 2.5 mg] 2.5 mg PO WEEKLY 10/05/20 [History] PANTOPRAZOLE 40 mg Tablet [Protonix 40MG Tablet] 40 mg PO DAILY 10/05/20 [History] Aspirin EC 81 mg [Ecotrin 81 mg] 1 tab PO DAILY 09/30/22 [History] Atorvastatin Calcium [Lipitor] 1 tab PO DAILY 09/30/22 [History] Hx Tetanus, Diphtheria Vaccination/Date Given: Yes Hx Influenza Vaccination/Date Given: No Hx Pneumococcal Vaccination/Date Given: Yes Travel Risk - International Travel Have you traveled outside of the country in past 3 weeks: No - Coronavirus Screening Are you exhibiting any of the following symptoms?: Yes Symptoms: Headaches/Body Aches/Fatigue Close contact with a COVID-19 positive Pt in past 14-21 Days: No - Vaccine Status Have you recieved a Covid-19 vaccination: Yes 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: [employer] - Review of Systems Constitutional: Night Sweats Eyes: No Symptoms Ears, Nose, & Throat: No Symptoms Respiratory: No Symptoms Cardiac: No Symptoms Abdominal/Gastrointestinal: No Symptoms Genitourinary Symptoms: No Symptoms Musculoskeletal: Arthralgias, Myalgias Skin: No Symptoms Neurological: No Symptoms Psychological: No Symptoms Endocrine: No Symptoms Hematologic/Lymphatic: No Symptoms Immunological/Allergic: No Symptoms All Other Systems: Reviewed and Negative - Past Medical History Pertinent Past Medical History: Yes Neurological History: Migraines ENT History: Other Cardiac History: Aneurysm, Angina, Coronary Artery Disease, High Cholesterol, Myocardial Infarction (IA) Respiratory History: Asthma, COPD Endocrine Medical History: No Pertinent History Musculoskeletal History: Fractures GI Medical History: Diverticulitis, GERD History: No Pertinent History Psycho-Social History: No Pertinent History Male Reproductive Disorders: No Pertinent History Other Medical History: difficulty hearing, Knee Problems, elephantitis - Past Surgical History Past Surgical History: Yes Neuro Surgical History: No Pertinent History Cardiac: Cardiac Catheterization Respiratory: No Pertinent History Gastrointestinal: No Pertinent History Genitourinary: No Pertinent History Musculoskeletal: Orthopedic Surgery Male Surgical History: No Pertinent History Other Surgical History: back, knee, wrist - Social History Smoking Status: Current every day smoker How long have you smoked: 39 years Exposure to second hand smoke: No Alcohol Use: Socially Drug Use: none Patient Lives Alone: No Significant Family History: heart disease, hypertension - Nursing Vital Signs Nursing Vital Signs: Initial Vital Signs Temperature 98.2 F 05/17/23 08:58 Pulse Rate 77 05/17/23 08:58 Respiratory Rate 20 05/17/23 08:58 Blood Pressure 124/71 05/17/23 08:58 O2 Sat by Pulse Oximetry 97 05/17/23 08:58 Pain Scale Pain Intensity 5 - Physical Exam General Appearance: no apparent distress, alert, anxiety, thin Eye Exam: PERRL/EOMI, eyes nml inspection Ears, Nose, Throat Exam: normal ENT inspection, moist mucous membranes Neck Exam: normal inspection, non-tender, supple, full range of motion Respiratory Exam: normal breath sounds, lungs clear, airway intact, No chest tenderness, No respiratory distress Cardiovascular Exam: regular rate/rhythm, normal heart sounds, normal peripheral pulses Gastrointestinal/Abdomen Exam: soft, normal bowel sounds, No tenderness Rectal Exam: not done Back Exam: normal inspection, normal range of motion, No CVA tenderness, No vertebral tenderness Extremity Exam: normal inspection, normal range of motion, pelvis stable Neurologic Exam: alert, oriented x 3, cooperative, ecotherapist II-XII nml as tested, normal mood/affect, nml cerebellar function, nml station & gait, sensation nml Skin Exam: normal color, warm, dry Lymphatic Exam: No adenopathy SpO2 Interpretation: normal O2 Delivery: Room Air - Course Nursing assessment & vital signs reviewed: Yes Ordered Tests: Active Orders 24 hr Category Date Time Status Administrative Operations Coordinator STAT Care 05/17/23 09:09 Active IV Insertion STAT Care 05/17/23 09:08 Active Pulse Oximetry (ED) STAT Care 05/17/23 09:08 Active CBC W DIFF Stat Lab 05/17/23 09:25 Completed CMP Stat Lab 05/17/23 09:25 Completed ESR [Erythrocyte Sedimentation Rate] Stat Lab 05/17/23 09:25 Completed MAG [MAGNESIUM] Stat Lab 05/17/23 09:25 Completed MONO SCREEN Stat Lab 05/17/23 09:25 Completed UA W/RFX UR CULTURE Stat Lab 05/17/23 09:45 Completed Medication Summary Discontinued Medications Generic Name Dose Route Start Last Admin Trade Name Freq PRN Reason Stop Dose Admin Methylprednisolone Sodium 0 mg 05/17/23 09:10 05/17/23 09:21 Succinate 125 mg/ Sterile IV 05/17/23 09:11 125 mg Water 2 ml STAT ONE Administration Hydromorphone HCl 1 mg 05/17/23 09:10 05/17/23 09:22 Hydromorphone 1 Mg/1ml Inj IV 05/17/23 09:11 1 mg STAT ONE Administration Hydromorphone HCl Confirm 05/17/23 09:20 Hydromorphone 1 Mg/1ml Inj Administered 05/17/23 09:21 Dose 1 mg .ROUTE .STK-MED ONE Sodium Chloride 1,000 mls @ 999 mls/hr 05/17/23 09:08 05/17/23 09:22 Sodium Chloride 0.9% 1000 Ml IV 05/17/23 10:08 999 mls/hr .Q1H1M STA Administration Sodium Chloride Confirm 05/17/23 09:20 Sodium Chloride 0.9% 1000 Ml Administered 05/17/23 09:21 Dose 1,000 mls @ ud .ROUTE .STK-MED ONE Methylprednisolone Sodium Succinate Confirm 05/17/23 09:20 Methylprednis Sod Succ 125 Mg/2 Ml Vial Administered 05/17/23 09:21 Dose 125 mg .ROUTE .STK-MED ONE Ondansetron HCl 4 mg 05/17/23 09:10 05/17/23 09:22 Ondansetron Hcl 4 Mg/2 Ml Vial IV 05/17/23 09:11 4 mg STAT ONE Administration Ondansetron HCl Confirm 05/17/23 09:20 Ondansetron Hcl 4 Mg/2 Ml Vial Administered 05/17/23 09:21 Dose 4 mg .ROUTE .STK-MED ONE Sterile Water Confirm 05/17/23 09:19 Water For Injection,Sterile 10 Ml Vial Administered 05/17/23 09:20 Dose 10 ml IJ .STK-MED ONE Lab/Rad Data: Laboratory Result Diagrams 05/17/23 09:25 05/17/23 09:25 Laboratory Results 05/17/23 05/17/23 05/17/23 Range/Units Unknown 09:45 09:25 WBC (4.0-10.5) x10^3/uL RBC (4.1-5.6) x10^6/uL Hgb (12.5-18.0) g/dL Hct (42-50) % MCV (78-100) fL MCH (26-32) pg MCHC (32-36) g/dL RDW (11.5-14.0) % Plt Count (150-450) x10^3/uL MPV (7.5-11.0) fL Gran % (36.0-66.0) % Immature Gran % (Auto) (0.00-0.4) % Nucleat RBC Rel Count (0.00-0.1) % Eos # (Auto) (0-0.5) x10^3/uL Immature Gran # (Auto) (0.00-0.03) x10^3u/L Absolute Lymphs (auto) (1.0-4.6) x10^3/uL Absolute Monos (auto) (0.0-1.3) x10^3/uL Absolute Nucleated RBC (0.00-0.01) x10^3u/L Lymphocytes % (24.0-44.0) % Monocytes % (0.0-12.0) % Eosinophils % (0.00-5.0) % Basophils % (0.0-0.4) % Absolute Granulocytes (1.4-6.9) x10^3/uL Basophils # (0-0.4) x10^3/uL ESR 108 H (0-15) mm/hr Sodium (137-145) mmol/L Potassium (3.5-5.1) mmol/L Chloride (98-107) mmol/L Carbon Dioxide (22-30) mmol/L Anion Gap (5-15) MEQ/L BUN (9-20) mg/dL Creatinine (0.66-1.25) mg/dL Estimated GFR ML/MIN Glucose (74-106) mg/dL Calcium (8.4-10.2) mg/dL Magnesium (1.6-2.3) mg/dL Total Bilirubin (0.2-1.3) mg/dL AST (17-59) U/L ALT (0-50) U/L Alkaline Phosphatase (38-126) U/L Serum Total Protein (6.3-8.2) g/dL Albumin (3.5-5.0) g/dL Urine Color Dark Yellow (Yellow) Urine Appearance Clear (Clear) Urine pH 6.0 (4.6-8.0) Ur Specific [employer] >=1.030 A (1.005-1.030) Urine Protein 30 (Negative) Urine Glucose (UA) Negative (Negative) mg/dL Urine Ketones Negative (Negative) Urine Blood Negative (Negative) Urine Nitrite Negative (Negative) Urine Bilirubin Negative (Negative) Urine Urobilinogen 1.0 A (0.2) mg/dL Ur Leukocyte Esterase Negative (Negative) U Hyaline Cast (Auto) NONE SEEN (0-2) /LPF Urine Microscopic RBC 0-2 (0-5) /HPF Urine Microscopic WBC 0-2 (0-5) /HPF Ur Epithelial Cells None Seen (None Seen) /HPF Urine Bacteria None Seen (None Seen) /HPF Urine Culture Reflexed NO (NO) Monoscreen (NEGATIVE) Influenza Type A Ag NEGATIVE (NEGATIVE) Influenza Type B Ag NEGATIVE (NEGATIVE) RSV (PCR) NEGATIVE (NEGATIVE) SARS-CoV-2 (PCR) NEGATIVE (NEGATIVE) 05/17/23 05/17/23 05/17/23 Range/Units 09:25 09:25 09:25 WBC (4.0-10.5) x10^3/uL RBC (4.1-5.6) x10^6/uL Hgb (12.5-18.0) g/dL Hct (42-50) % MCV (78-100) fL MCH (26-32) pg MCHC (32-36) g/dL RDW (11.5-14.0) % Plt Count (150-450) x10^3/uL MPV (7.5-11.0) fL Gran % (36.0-66.0) % Immature Gran % (Auto) (0.00-0.4) % Nucleat RBC Rel Count (0.00-0.1) % Eos # (Auto) (0-0.5) x10^3/uL Immature Gran # (Auto) (0.00-0.03) x10^3u/L Absolute Lymphs (auto) (1.0-4.6) x10^3/uL Absolute Monos (auto) (0.0-1.3) x10^3/uL Absolute Nucleated RBC (0.00-0.01) x10^3u/L Lymphocytes % (24.0-44.0) % Monocytes % (0.0-12.0) % Eosinophils % (0.00-5.0) % Basophils % (0.0-0.4) % Absolute Granulocytes (1.4-6.9) x10^3/uL Basophils # (0-0.4) x10^3/uL ESR (0-15) mm/hr Sodium 139 (137-145) mmol/L Potassium 3.9 (3.5-5.1) mmol/L Chloride 109 H (98-107) mmol/L Carbon Dioxide 21 L (22-30) mmol/L Anion Gap 12.4 (5-15) MEQ/L BUN 18 (9-20) mg/dL Creatinine 0.59 L (0.66-1.25) mg/dL Estimated GFR > 60.0 ML/MIN Glucose 185 H (74-106) mg/dL Calcium 9.0 (8.4-10.2) mg/dL Magnesium 1.6 (1.6-2.3) mg/dL Total Bilirubin 0.60 (0.2-1.3) mg/dL AST 29 (17-59) U/L ALT 23 (0-50) U/L Alkaline Phosphatase 126 (38-126) U/L Serum Total Protein 7.8 (6.3-8.2) g/dL Albumin 3.9 (3.5-5.0) g/dL Urine Color (Yellow) Urine Appearance (Clear) Urine pH (4.6-8.0) Ur Specific [employer] (1.005-1.030) Urine Protein (Negative) Urine Glucose (UA) (Negative) mg/dL Urine Ketones (Negative) Urine Blood (Negative) Urine Nitrite (Negative) Urine Bilirubin (Negative) Urine Urobilinogen (0.2) mg/dL Ur Leukocyte Esterase (Negative) U Hyaline Cast (Auto) (0-2) /LPF Urine Microscopic RBC (0-5) /HPF Urine Microscopic WBC (0-5) /HPF Ur Epithelial Cells (None Seen) /HPF Urine Bacteria (None Seen) /HPF Urine Culture Reflexed (NO) Monoscreen WEAKLY POSITIVE (NEGATIVE) Influenza Type A Ag (NEGATIVE) Influenza Type B Ag (NEGATIVE) RSV (PCR) (NEGATIVE) SARS-CoV-2 (PCR) (NEGATIVE) 05/17/23 Range/Units 09:25 WBC 10.0 (4.0-10.5) x10^3/uL RBC 4.50 (4.1-5.6) x10^6/uL Hgb 13.6 (12.5-18.0) g/dL Hct 41.6 L (42-50) % MCV 92.4 (78-100) fL MCH 30.2 (26-32) pg MCHC 32.7 (32-36) g/dL RDW 13.7 (11.5-14.0) % Plt Count 234 (150-450) x10^3/uL MPV 10.1 (7.5-11.0) fL Gran % 73.7 H (36.0-66.0) % Immature Gran % (Auto) 0.5 H (0.00-0.4) % Nucleat RBC Rel Count 0.0 (0.00-0.1) % Eos # (Auto) 0.20 (0-0.5) x10^3/uL Immature Gran # (Auto) 0.05 H (0.00-0.03) x10^3u/L Absolute Lymphs (auto) 1.50 (1.0-4.6) x10^3/uL Absolute Monos (auto) 0.83 (0.0-1.3) x10^3/uL Absolute Nucleated RBC 0.00 (0.00-0.01) x10^3u/L Lymphocytes % 15.0 L (24.0-44.0) % Monocytes % 8.3 (0.0-12.0) % Eosinophils % 2.0 (0.00-5.0) % Basophils % 0.5 (0.0-0.4) % Absolute Granulocytes 7.37 H (1.4-6.9) x10^3/uL Basophils # 0.05 (0-0.4) x10^3/uL ESR (0-15) mm/hr Sodium (137-145) mmol/L Potassium (3.5-5.1) mmol/L Chloride (98-107) mmol/L Carbon Dioxide (22-30) mmol/L Anion Gap (5-15) MEQ/L BUN (9-20) mg/dL Creatinine (0.66-1.25) mg/dL Estimated GFR ML/MIN Glucose (74-106) mg/dL Calcium (8.4-10.2) mg/dL Magnesium (1.6-2.3) mg/dL Total Bilirubin (0.2-1.3) mg/dL AST (17-59) U/L ALT (0-50) U/L Alkaline Phosphatase (38-126) U/L Serum Total Protein (6.3-8.2) g/dL Albumin (3.5-5.0) g/dL Urine Color (Yellow) Urine Appearance (Clear) Urine pH (4.6-8.0) Ur Specific [employer] (1.005-1.030) Urine Protein (Negative) Urine Glucose (UA) (Negative) mg/dL Urine Ketones (Negative) Urine Blood (Negative) Urine Nitrite (Negative) Urine Bilirubin (Negative) Urine Urobilinogen (0.2) mg/dL Ur Leukocyte Esterase (Negative) U Hyaline Cast (Auto) (0-2) /LPF Urine Microscopic RBC (0-5) /HPF Urine Microscopic WBC (0-5) /HPF Ur Epithelial Cells (None Seen) /HPF Urine Bacteria (None Seen) /HPF Urine Culture Reflexed (NO) Monoscreen (NEGATIVE) Influenza Type A Ag (NEGATIVE) Influenza Type B Ag (NEGATIVE) RSV (PCR) (NEGATIVE) SARS-CoV-2 (PCR) (NEGATIVE) - Progress Progress: improved, pain not gone completely Progress Note: 05/17/23 09:59 This patient's medical issue is 1 of moderate complexity. The level of complexity in the work-up performed is based on review of the patient's past medical history, review the patient's medication list, review the patient's drug allergy list, history of present illness and physical findings on examination. The work-up in this patient includes placement of intravenous line, infusion of 1 L normal saline solution, infusion of 4 mg intravenous Zofran, infusion of 1 mg intravenous Dilaudid, infusion of 125 mg Solu-Medrol, CBC, CMP, magnesium level, and urinalysis. We will also obtain COVID, influenza a and B swabs and RSV. We will obtain a monoscreen 05/17/23 10:18 I interpreted the laboratory result work-up. Patient has weakly positive monoscreen. He also has a substantially elevated ESR level. We will refer him back to his primary care provider for further evaluation management.. Counseled pt/family regarding: lab results, diagnosis, need for follow-up Medical Desision Making - Independent Historian Additional History obtained from: Spouse - Diagnostic Testing Diagnostic test were ordered, analyzed, and reviewed by me: Yes - Risk of complications The pt has a mod risk of morbidity or mortality based on: Need for prescription drug management - Departure Departure Disposition: Home Clinical Impression: Musculoskeletal pain, Mononucleosis, Elevated erythrocyte sedimentation rate Condition: Stable Critical Care Time: No Referrals: ESE MARRERO MD [Primary Care Provider] - Follow up/PCP as directed Additional Instructions: take your medications as prescribed. Call your primary care provider today, 05/17/2023, to make a follow-up appointment for further evaluation and management Prescriptions: Prednisone 10 mg [Deltasone 10 mg] 10 mg PO TID #12 tablet Orphenadrine Citrate 100 mg [Norflex 100 MG Tablet] 100 mg PO BID #10 tab
[2023-05-17 09:05] VITALS: RESP 20; TEMP 98.2
[2023-05-17] MEDS ORDERED: Sodium Chloride 0.9% 1000 ML 1,000 ML IV STA (09:08)
[2023-05-17] MEDS ORDERED: Hydromorphone 1 mg/ml Injection IV ONE (09:10)
[2023-05-17] MEDS ORDERED: solu-MEDROL 125 MG, Sterile H2O 10 ml 2 ML IV ONE ×2 (09:10)
[2023-05-17] MEDS ORDERED: Zofran 4 MG/2 ML VIAL IV ONE (09:10)
[2023-05-17] MEDS ORDERED: Sterile H2O 10 ml IJ ONE (09:19)
[2023-05-17] MEDS ORDERED: Hydromorphone 1 mg/ml Injection ONE (09:20)
[2023-05-17] MEDS ORDERED: Zofran 4 MG/2 ML VIAL ONE (09:20)
[2023-05-17] MEDS ORDERED: Sodium Chloride 0.9% 1000 ML 1,000 ML ONE (09:20)
[2023-05-17] MEDS ORDERED: solu-MEDROL ONE (09:20)
[2023-05-17 09:34] LABS: Absolute Neutrophil Ct (ANC) 7.37 x10^3/uL (1.4-6.9); BASOPHIL % 0.5 % (0.0-0.4); Basophil (Absolute #) 0.05 x10^3/uL (0-0.4); Hematocrit 41.6 % (42-50); Hemoglobin 13.6 g/dL (12.5-18.0); IMMATURE GRAN # 0.05 x10^3u/L (0.00-0.03); IMMATURE GRAN % 0.5 % (0.00-0.4); Mean Cell Volume 92.4 fL (78-100); Mean Corpuscular Hemoglobin 30.2 pg (26-32); Mean Corpuscular Hgb Concent. 32.7 g/dL (32-36); Mean Platelet Volume 10.1 fL (7.5-11.0); Monocyte (Absolute #) 0.83 x10^3/uL (0.0-1.3); Monocytes % 8.3 % (0.0-12.0); Neutrophil % 73.7 % (36.0-66.0); Platelet Count 234 x10^3/uL (150-450); Red Cell Distribution Width 13.7 % (11.5-14.0)
[2023-05-17 09:52] LABS: ALBUMIN 3.9 g/dL (3.5-5.0); ALKALINE PHOSPHATASE 126 U/L (38-126); ANION GAP 12.4 MEQ/L (5-15); BLOOD UREA NITROGEN 18 mg/dL (9-20); CHLORIDE 109 mmol/L (98-107); Carbon Dioxide 21 mmol/L (22-30); Creatinine 1 0.59 mg/dL (0.66-1.25); EST GLOMERULAR FILTRATION RATE > 60.0 ML/MIN; Glucose 185 mg/dL (74-106); Potassium 3.9 mmol/L (3.5-5.1); SGOT/AST 29 U/L (17-59); SGPT/ALT 23 U/L (0-50); SODIUM 139 mmol/L (137-145); Total Protein 7.8 g/dL (6.3-8.2)
[2023-05-17 10:04] LABS: Appearance Clear (Clear); Bacteria None Seen /HPF (None Seen); Bilirubin Negative (Negative); Blood Negative (Negative); Epithelial Cells None Seen /HPF (None Seen); Glucose, Urine Negative (Negative); Hyaline Casts NONE SEEN /LPF (0-2); Ketones Negative (Negative); Leukocyte Esterase Negative (Negative); Nitrite Negative (Negative); Protein,Urine Dip 30 (Negative); RBC 0-2 /HPF (0-5); Specific Gravity >=1.030 (1.005-1.030); WBC 0-2 /HPF (0-5)
[2023-05-17 10:05] VITALS: BP 128/84; PULSE 67; O2SAT 94
[2023-05-17 10:05] LABS: ADD URINE CULTURE? NO (NO)
[2023-05-17 10:09] LABS: INFLUENZA A NEGATIVE (NEGATIVE); INFLUENZA B NEGATIVE (NEGATIVE); RESPIRATORY SYNCTIAL VIRUS NEGATIVE (NEGATIVE); SARS-CoV-2 Xpert Express NEGATIVE (NEGATIVE)
== END 2023-05-17 11:11 | disposition home or self-care (01) ==
LOC: ED 08:45
DX: B27.90 Infectious mononucleosis, unspecified without complication (principal); M79.18 Myalgia, other site; R70.0 Elevated erythrocyte sedimentation rate; E78.5 Hyperlipidemia, unspecified; Z79.52 Long term (current) use of systemic steroids; Z79.899 Other long term (current) drug therapy; Z72.0 Tobacco use; Z20.828 Contact with and (suspected) exposure to other viral communicable diseases
CPT/HCPCS: 0241U; 36000; 36415; 80053; 81001; 83735; 85025; 85652; 86308; 93041; 94760; 96360; 96374; 96375; 99284; J1170; J2405; J2930

== ENCOUNTER 2023-06-05 19:51 | Emergency (ER) | payer MEDICARE ==
[2023-06-05 21:14] VITALS: TEMP 98.4; O2SAT 98
[2023-06-05] MEDS ORDERED: Sodium Chloride 0.9% 1000 ML 1,000 ML IV STA (21:25)
--- NOTE | 2023-06-05 21:25 | ERPHSYRPT ---
- History of Present Illness Time Seen by Provider: 06/05/23 21:24 Source: patient, family Exam Limitations: no limitations Patient Subjective Stated Complaint: pt states he is here for the same thing that he was 3-4 weeks ago and was seen by Dr Schmidt and was told he had generalized arthritis all over his body with the worst areas being his hips and arms. states he hasn't been able to get in to see a vp purchasing and doesn't have anything scheduled but saw his PCP and he has scripts for norflex and toradol and he is currently due for both doses at this time but hasn't taken yet. Triage Nursing Assessment: pt ambulated to room 5 independently with slow steady gait after standing on scales for weight acquisition. pt is alert and oriented times three, able to move all extremities (some limitations due to pain), able to speak in complete sentences, and with resp even and unlabored. denies any other complaints than generalized joint pain all over his body with the worst being his hips and arms. Physician History: This is a 52-year-old white male patient of Dr. Marrero who I evaluated on 05/17/2023 for the same issue. That is body wide muscle aches and pains especially in his joints. Patient is on methotrexate for psoriasis. He has not yet seen a vp purchasing as instructed on his discharge papers from last visit. He has seen his primary care provider who provided him with Toradol and Norflex medication. This intermittently helps. But he had an acute flareup this evening prior to arrival to the emergency department. Patient denies chest pain. Patient denies shortness of breath. Patient has a history of hyperlipidemia, gastroesophageal reflux disease angina, coronary artery disease, asthma, COPD and an aneurysm. He denies abdominal pain. A referral has been made to the his vp purchasing but they have not scheduled him an appointment. Timing/Duration: worse, other (Been present for several weeks) Severity: moderate Modifying Factors: Improves With: movement Associated Symptoms: denies symptoms Allergies/Adverse Reactions: No Known Drug Allergies Allergy (Unverified 06/05/23 21:00) Home Medications: Ketorolac Trometh 10 mg Tab [TORAdol 10 MG TABLET] 10 mg PO QID 06/05/23 [History] Hx Tetanus, Diphtheria Vaccination/Date Given: Yes Hx Influenza Vaccination/Date Given: No Hx Pneumococcal Vaccination/Date Given: Yes (2019) Travel Risk - International Travel Have you traveled outside of the country in past 3 weeks: No - Coronavirus Screening Are you exhibiting any of the following symptoms?: No Close contact with a COVID-19 positive Pt in past 14-21 Days: No - Vaccine Status Have you recieved a Covid-19 vaccination: Yes Assistant Director Of Nursing: Mlog - Review of Systems Constitutional: No Symptoms Eyes: No Symptoms Ears, Nose, & Throat: No Symptoms Respiratory: No Symptoms Cardiac: No Symptoms Abdominal/Gastrointestinal: No Symptoms Genitourinary Symptoms: No Symptoms Musculoskeletal: Arthralgias (Generalized), Joint Pain (Generalized), Myalgias (Generalized) Skin: No Symptoms Neurological: No Symptoms Psychological: No Symptoms Endocrine: No Symptoms Hematologic/Lymphatic: No Symptoms Immunological/Allergic: No Symptoms All Other Systems: Reviewed and Negative - Past Medical History Pertinent Past Medical History: Yes Neurological History: Migraines ENT History: Other Cardiac History: Aneurysm, Angina, Coronary Artery Disease, High Cholesterol, Myocardial Infarction ([place]) Respiratory History: Asthma, COPD Endocrine Medical History: No Pertinent History Musculoskeletal History: Fractures GI Medical History: Diverticulitis, GERD History: No Pertinent History Psycho-Social History: No Pertinent History Male Reproductive Disorders: No Pertinent History Other Medical History: difficulty hearing, Knee Problems, elephantitis - Past Surgical History Past Surgical History: Yes Neuro Surgical History: No Pertinent History Cardiac: Cardiac Catheterization Respiratory: No Pertinent History Gastrointestinal: No Pertinent History Genitourinary: No Pertinent History Musculoskeletal: Orthopedic Surgery Male Surgical History: No Pertinent History Other Surgical History: back, knee, wrist - Social History Smoking Status: Current every day smoker How long have you smoked: 39 years Exposure to second hand smoke: No Alcohol Use: Socially Drug Use: none Patient Lives Alone: No Significant Family History: heart disease, hypertension - Nursing Vital Signs Nursing Vital Signs: Initial Vital Signs Temperature 98.4 F 06/05/23 21:03 Pulse Rate 80 06/05/23 21:03 Respiratory Rate 16 06/05/23 21:03 Blood Pressure 133/72 06/05/23 21:03 O2 Sat by Pulse Oximetry 98 06/05/23 21:03 Pain Scale Pain Intensity 7 - Physical Exam General Appearance: no apparent distress, alert, anxiety Eye Exam: PERRL/EOMI, eyes nml inspection Ears, Nose, Throat Exam: normal ENT inspection, moist mucous membranes Neck Exam: normal inspection, non-tender, supple, full range of motion Respiratory Exam: normal breath sounds, lungs clear, airway intact, No chest tenderness, No respiratory distress Cardiovascular Exam: regular rate/rhythm, normal heart sounds, normal peripheral pulses Gastrointestinal/Abdomen Exam: soft, normal bowel sounds, No tenderness Rectal Exam: not done Back Exam: normal inspection, normal range of motion, No CVA tenderness, No vertebral tenderness Extremity Exam: normal inspection, normal range of motion, pelvis stable Neurologic Exam: alert, oriented x 3, cooperative, animal attendants and trainers II-XII nml as tested, normal mood/affect, nml cerebellar function, nml station & gait, sensation nml Skin Exam: normal color, warm, dry Lymphatic Exam: No adenopathy SpO2 Interpretation: normal SpO2: 98 O2 Delivery: Room Air - Course Nursing assessment & vital signs reviewed: Yes EKG Interpreted by Me: RATE (83), Sinus Rhythm, NORMAL AXIS, NORMAL INTERVALS, NORMAL QRS, NORMAL ST-T, Other (No acute ischemic changes on this twelve-lead EKG.) Ordered Tests: Active Orders 24 hr Category Date Time Status Recreation Therapy Aide STAT Care 06/05/23 21:25 Active EKG-ER Only STAT Care 06/05/23 21:25 Active IV Insertion STAT Care 06/05/23 21:25 Active Pulse Oximetry (ED) STAT Care 06/05/23 21:25 Active CBC W DIFF Stat Lab 06/05/23 21:38 Completed CK-Creatinine Phosphokinase Stat Lab 06/05/23 21:38 Completed CMP Stat Lab 06/05/23 21:38 Completed Lactic Acid Stat Lab 06/05/23 21:45 Completed MAGNESIUM Stat Lab 06/05/23 21:38 Completed MONO SCREEN Stat Lab 06/05/23 21:38 Completed TROPONIN Q4H Lab 06/05/23 21:38 Completed TROPONIN Q4H Lab 06/06/23 01:30 Ordered TROPONIN Q4H Lab 06/06/23 05:30 Ordered Medication Summary Discontinued Medications Generic Name Dose Route Start Last Admin Trade Name Freq PRN Reason Stop Dose Admin Methylprednisolone Sodium 0 mg 06/05/23 21:27 06/05/23 21:41 Succinate 125 mg/ Sterile IV 06/05/23 21:28 125 mg Water 2 ml STAT ONE Administration Hydromorphone HCl 1 mg 06/05/23 21:26 06/05/23 21:42 Hydromorphone 1 Mg/1ml Inj IV 06/05/23 21:27 1 mg STAT ONE Administration Hydromorphone HCl Confirm 06/05/23 21:37 Hydromorphone 1 Mg/1ml Inj Administered 06/05/23 21:38 Dose 1 mg .ROUTE .STK-MED ONE Sodium Chloride 1,000 mls @ 999 mls/hr 06/05/23 21:25 06/05/23 21:41 Sodium Chloride 0.9% 1000 Ml IV 06/05/23 22:25 999 mls/hr .Q1H1M STA Administration Sodium Chloride Confirm 06/05/23 21:37 Sodium Chloride 0.9% 1000 Ml Administered 06/05/23 21:38 Dose 1,000 mls @ ud .ROUTE .STK-MED ONE Methylprednisolone Sodium Succinate Confirm 06/05/23 21:37 Methylprednis Sod Succ 125 Mg/2 Ml Vial Administered 06/05/23 21:38 Dose 125 mg .ROUTE .STK-MED ONE Ondansetron HCl 4 mg 06/05/23 21:26 06/05/23 21:41 Ondansetron Hcl 4 Mg/2 Ml Vial IV 06/05/23 21:27 4 mg STAT ONE Administration Ondansetron HCl Confirm 06/05/23 21:37 Ondansetron Hcl 4 Mg/2 Ml Vial Administered 06/05/23 21:38 Dose 4 mg .ROUTE .STK-MED ONE Orphenadrine Citrate 60 mg 06/05/23 21:26 06/05/23 21:41 Orphenadrine Citrate 60 Mg/2 Ml Vial IV 06/05/23 21:27 60 mg STAT ONE Administration Orphenadrine Citrate Confirm 06/05/23 21:37 Orphenadrine Citrate 60 Mg/2 Ml Vial Administered 06/05/23 21:38 Dose 60 mg .ROUTE .STK-MED ONE Sterile Water Confirm 06/05/23 21:37 Water For Injection,Sterile 10 Ml Vial Administered 06/05/23 21:38 Dose 10 ml IJ .STK-MED ONE Lab/Rad Data: Laboratory Result Diagrams 06/05/23 21:38 06/05/23 21:38 Laboratory Results 06/05/23 06/05/23 06/05/23 Range/Units 21:45 21:38 21:38 WBC (4.0-10.5) x10^3/uL RBC (4.1-5.6) x10^6/uL Hgb (12.5-18.0) g/dL Hct (42-50) % MCV (78-100) fL MCH (26-32) pg MCHC (32-36) g/dL RDW (11.5-14.0) % Plt Count (150-450) x10^3/uL MPV (7.5-11.0) fL Gran % (36.0-66.0) % Immature Gran % (Auto) (0.00-0.4) % Nucleat RBC Rel Count (0.00-0.1) % Eos # (Auto) (0-0.5) x10^3/uL Immature Gran # (Auto) (0.00-0.03) x10^3u/L Absolute Lymphs (auto) (1.0-4.6) x10^3/uL Absolute Monos (auto) (0.0-1.3) x10^3/uL Absolute Nucleated RBC (0.00-0.01) x10^3u/L Lymphocytes % (24.0-44.0) % Monocytes % (0.0-12.0) % Eosinophils % (0.00-5.0) % Basophils % (0.0-0.4) % Absolute Granulocytes (1.4-6.9) x10^3/uL Basophils # (0-0.4) x10^3/uL Sodium (137-145) mmol/L Potassium (3.5-5.1) mmol/L Chloride (98-107) mmol/L Carbon Dioxide (22-30) mmol/L Anion Gap (5-15) MEQ/L BUN (9-20) mg/dL Creatinine (0.66-1.25) mg/dL Estimated GFR ML/MIN Glucose (74-106) mg/dL Lactic Acid 1.4 (0.4-2.0) Calcium (8.4-10.2) mg/dL Magnesium (1.6-2.3) mg/dL Total Bilirubin (0.2-1.3) mg/dL AST (17-59) U/L ALT (0-50) U/L Alkaline Phosphatase (38-126) U/L Creatine Kinase (55-170) U/L Troponin I (0.000-0.034) ng/mL Serum Total Protein (6.3-8.2) g/dL Albumin (3.5-5.0) g/dL Monoscreen NEGATIVE (NEGATIVE) Influenza Type A Ag NEGATIVE (NEGATIVE) Influenza Type B Ag NEGATIVE (NEGATIVE) RSV (PCR) NEGATIVE (NEGATIVE) SARS-CoV-2 (PCR) NEGATIVE (NEGATIVE) 06/05/23 06/05/23 06/05/23 Range/Units 21:38 21:38 21:38 WBC 9.4 (4.0-10.5) x10^3/uL RBC 4.10 (4.1-5.6) x10^6/uL Hgb 12.2 L (12.5-18.0) g/dL Hct 38.2 L (42-50) % MCV 93.2 (78-100) fL MCH 29.8 (26-32) pg MCHC 31.9 L (32-36) g/dL RDW 14.0 (11.5-14.0) % Plt Count 285 (150-450) x10^3/uL MPV 10.0 (7.5-11.0) fL Gran % 70.5 H (36.0-66.0) % Immature Gran % (Auto) 0.7 H (0.00-0.4) % Nucleat RBC Rel Count 0.0 (0.00-0.1) % Eos # (Auto) 0.31 (0-0.5) x10^3/uL Immature Gran # (Auto) 0.07 H (0.00-0.03) x10^3u/L Absolute Lymphs (auto) 1.60 (1.0-4.6) x10^3/uL Absolute Monos (auto) 0.75 (0.0-1.3) x10^3/uL Absolute Nucleated RBC 0.00 (0.00-0.01) x10^3u/L Lymphocytes % 17.0 L (24.0-44.0) % Monocytes % 8.0 (0.0-12.0) % Eosinophils % 3.3 (0.00-5.0) % Basophils % 0.5 (0.0-0.4) % Absolute Granulocytes 6.64 (1.4-6.9) x10^3/uL Basophils # 0.05 (0-0.4) x10^3/uL Sodium 139 (137-145) mmol/L Potassium 4.3 (3.5-5.1) mmol/L Chloride 107 (98-107) mmol/L Carbon Dioxide 22 (22-30) mmol/L Anion Gap 13.8 (5-15) MEQ/L BUN 20 (9-20) mg/dL Creatinine 0.64 L (0.66-1.25) mg/dL Estimated GFR 113.2 ML/MIN Glucose 133 H (74-106) mg/dL Lactic Acid (0.4-2.0) Calcium 9.6 (8.4-10.2) mg/dL Magnesium 1.9 (1.6-2.3) mg/dL Total Bilirubin 0.30 (0.2-1.3) mg/dL AST 29 (17-59) U/L ALT 48 (0-50) U/L Alkaline Phosphatase 113 (38-126) U/L Creatine Kinase 23 L (55-170) U/L Troponin I < 0.012 (0.000-0.034) ng/mL Serum Total Protein 7.8 (6.3-8.2) g/dL Albumin 3.8 (3.5-5.0) g/dL Monoscreen (NEGATIVE) Influenza Type A Ag (NEGATIVE) Influenza Type B Ag (NEGATIVE) RSV (PCR) (NEGATIVE) SARS-CoV-2 (PCR) (NEGATIVE) - Progress Progress: improved, pain not gone completely, re-examined Progress Note: 06/05/23 22:58 This patient's medical issue is 1 of moderate complexity. Level complex in the work-up performed is based on review of the patient's past medical history, review the patient's medication list, review of the patient's drug allergy list, history present illness and physical findings on examination. The work-up in t his patient includes placement of intravenous line, infusion of intravenous Norflex, Dilaudid, Zofran, and Solu-Medrol. We also obtained a twelve-lead EKG, troponin level, CBC, CMP levels as well as viral studies and monotest. I reviewed and interpreted the laboratory tests results. There is no evidence of any acute, emergent medical issue at this time. Patient's condition appears to me to be more rheumatologic. Patient is to follow-up with his primary care provider tomorrow to obtain assistance in securing a rheumatology appointment. Counseled pt/family regarding: lab results, diagnosis, need for follow-up, smoking cessation Medical Desision Making - Diagnostic Testing Diagnostic test were ordered, analyzed, and reviewed by me: Yes - Risk of complications Low Risk: Low risk of morbidity from additional dx testing or treatment - Departure Departure Disposition: Home Clinical Impression: Generalized joint pain Condition: Stable Critical Care Time: No Referrals: ESE MARRERO MD [Primary Care Provider] - Follow up/PCP as directed Additional Instructions: Take your medication as prescribed. Call your primary care provider tomorrow, 06/06/2023, and make them aware that you came to the emergency room this evening. Discussed with them the difficulty you are having obtaining a rheumatology appointment. Have them help assist with obtaining a rheumatology appointment at a reasonable date.
[2023-06-05] MEDS ORDERED: Norflex 60 MG/2 ML IV ONE (21:26)
[2023-06-05] MEDS ORDERED: Hydromorphone 1 mg/ml Injection IV ONE (21:26)
[2023-06-05] MEDS ORDERED: Zofran 4 MG/2 ML VIAL IV ONE (21:26)
[2023-06-05] MEDS ORDERED: solu-MEDROL 125 MG, Sterile H2O 10 ml 2 ML IV ONE ×2 (21:27)
[2023-06-05] MEDS ORDERED: Norflex 60 MG/2 ML ONE (21:37)
[2023-06-05] MEDS ORDERED: Hydromorphone 1 mg/ml Injection ONE (21:37)
[2023-06-05] MEDS ORDERED: Sterile H2O 10 ml IJ ONE (21:37)
[2023-06-05] MEDS ORDERED: Zofran 4 MG/2 ML VIAL ONE (21:37)
[2023-06-05] MEDS ORDERED: Sodium Chloride 0.9% 1000 ML 1,000 ML ONE (21:37)
[2023-06-05] MEDS ORDERED: solu-MEDROL ONE (21:37)
[2023-06-05 21:43] LABS: Absolute Neutrophil Ct (ANC) 6.64 x10^3/uL (1.4-6.9); BASOPHIL % 0.5 % (0.0-0.4); Basophil (Absolute #) 0.05 x10^3/uL (0-0.4); Eosinophil % 3.3 % (0.00-5.0); Eosinophil (Absolute #) 0.31 x10^3/uL (0-0.5); Hematocrit 38.2 % (42-50); Hemoglobin 12.2 g/dL (12.5-18.0); IMMATURE GRAN # 0.07 x10^3u/L (0.00-0.03); IMMATURE GRAN % 0.7 % (0.00-0.4); Mean Cell Volume 93.2 fL (78-100); Mean Corpuscular Hemoglobin 29.8 pg (26-32); Mean Corpuscular Hgb Concent. 31.9 g/dL (32-36); Monocyte (Absolute #) 0.75 x10^3/uL (0.0-1.3); Neutrophil % 70.5 % (36.0-66.0); Platelet Count 285 x10^3/uL (150-450); White Blood Count 9.4 x10^3/uL (4.0-10.5)
[2023-06-05 21:56] LABS: ALBUMIN 3.8 g/dL (3.5-5.0); ANION GAP 13.8 MEQ/L (5-15); BILIRUBIN,TOTAL 0.3 mg/dL (0.2-1.3); Calcium 9.6 mg/dL (8.4-10.2); Creatinine 1 0.64 mg/dL (0.66-1.25); EST GLOMERULAR FILTRATION RATE 113.2 ML/MIN; MAGNESIUM 1.9 mg/dL (1.6-2.3); Potassium 4.3 mmol/L (3.5-5.1); Total Protein 7.8 g/dL (6.3-8.2)
[2023-06-05 22:04] VITALS: BP 146/79; PULSE 84; RESP 17
[2023-06-05 22:19] LABS: INFLUENZA A NEGATIVE (NEGATIVE); INFLUENZA B NEGATIVE (NEGATIVE); RESPIRATORY SYNCTIAL VIRUS NEGATIVE (NEGATIVE); SARS-CoV-2 Xpert Express NEGATIVE (NEGATIVE)
[2023-06-05] MEDS ORDERED: PERCOCET TABLET 5/325MG PO STA (22:53)
[2023-06-05] MEDS ORDERED: PERCOCET TABLET 5/325MG ONE (22:55)
== END 2023-06-05 23:09 | disposition home or self-care (01) ==
LOC: ED 19:51
DX: M25.59 Pain in other specified joint (principal); M79.18 Myalgia, other site; E78.5 Hyperlipidemia, unspecified; Z79.899 Other long term (current) drug therapy; Z72.0 Tobacco use; Z20.828 Contact with and (suspected) exposure to other viral communicable diseases
CPT/HCPCS: 0241U; 36000; 36415; 80053; 82550; 83605; 83735; 84484; 85025; 86308; 93005; 93041; 94760; 96374; 96375; 99284; J1170; J2360; J2405; J2930; A9270-GY

== ENCOUNTER 2023-06-16 16:34 | Emergency (ER) | payer MEDICARE ==
[2023-06-16 16:54] VITALS: TEMP 98.6
[2023-06-16] MEDS ORDERED: Sodium Chloride 0.9% 1000 ML 1,000 ML IV STA (17:10)
[2023-06-16] MEDS ORDERED: Kenalog-40 IM ONE (17:10)
[2023-06-16] MEDS ORDERED: Kenalog-40 ONE (17:26)
[2023-06-16] MEDS ORDERED: Sodium Chloride 0.9% 1000 ML 1,000 ML ONE (17:26)
[2023-06-16 17:35] LABS: ALBUMIN 3.9 g/dL (3.5-5.0); ANION GAP 13.9 MEQ/L (5-15); BILIRUBIN,TOTAL 0.5 mg/dL (0.2-1.3); Calcium 9.6 mg/dL (8.4-10.2); Creatinine 1 0.59 mg/dL (0.66-1.25); Potassium 3.6 mmol/L (3.5-5.1); Total Protein 8.1 g/dL (6.3-8.2)
[2023-06-16 18:12] LABS: Absolute Neutrophil Ct (ANC) 8.09 x10^3/uL (1.4-6.9); BASOPHIL % 0.6 % (0.0-0.4); Basophil (Absolute #) 0.07 x10^3/uL (0-0.4); Eosinophil % 2.6 % (0.00-5.0); Eosinophil (Absolute #) 0.29 x10^3/uL (0-0.5); Hemoglobin 12.8 g/dL (12.5-18.0); IMMATURE GRAN # 0.06 x10^3u/L (0.00-0.03); IMMATURE GRAN % 0.5 % (0.00-0.4); Lymphocyte (Absolute #) 2.04 x10^3/uL (1.0-4.6); Mean Cell Volume 92.6 fL (78-100); Mean Corpuscular Hemoglobin 29.6 pg (26-32); Mean Platelet Volume 10.6 fL (7.5-11.0); Monocyte (Absolute #) 0.81 x10^3/uL (0.0-1.3); Monocytes % 7.1 % (0.0-12.0); Neutrophil % 71.2 % (36.0-66.0); Platelet Count 259 x10^3/uL (150-450); Red Blood Count 4.32 x10^6/uL (4.1-5.6); White Blood Count 11.4 x10^3/uL (4.0-10.5)
[2023-06-16] MEDS ORDERED: Hydromorphone 1 mg/ml Injection IV ONE ×2 (18:26→22:23)
[2023-06-16] MEDS ORDERED: Zofran 4 MG/2 ML VIAL IV ONE (18:26)
--- NOTE | 2023-06-16 18:26 | ERPHSYRPT ---
- History of Present Illness Source: patient Exam Limitations: no limitations Patient Subjective Stated Complaint: pt states that Dr. Schmidt found his sed rate to be elevated and he gives him "treatments" that include percocets, zofran, fluids, and I think he said dilaudid, and then Dr. Marrero gives him a script of Toradol but now he can't get anymore till mid June, pt states that his entire body is inflamed and he can't live like this Triage Nursing Assessment: Pt brought to the ER by his , hypertensive, rates pain as 10, pt states that his entire body hurts and it feels like everything is tightening up, pulses normal, skin n/w/d, no difficulty breathing, doesn't appear to be in any distress Hx Tetanus, Diphtheria Vaccination/Date Given: Yes Hx Influenza Vaccination/Date Given: No Hx Pneumococcal Vaccination/Date Given: Yes (2019) <JOAN BARNARD - Last Filed: 06/16/23 18:21> - History of Present Illness Timing/Duration: week(s) Severity: moderate Associated Symptoms: malaise <LETTY GALVEZ - Last Filed: 06/17/23 00:51> - History of Present Illness Time Seen by Provider: 06/16/23 16:43 Physician History: 51 years old male with history of psoriasis, tobacco abuse presented in the ER with aches and pains all over for over 5 weeks. Patient has been evaluated in this ER twice with elevated ESR, was given steroids and has been taking ketorolac outpatient along with muscle relaxant but no significant relief. Patient reports having night sweats, subjective feeling of fever and chills with some tightness in the abdomen but no chest pain palpitations or shortness of breath. Patient reports having difficulty movements of arms above his head and also feels pain with activity/ambulation in the lower extremities. No swelling or trauma reported. Denies any weight loss. 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: [employer] <JOAN BARNARD - Last Filed: 06/16/23 18:21> - Review of Systems Constitutional: Fever, Fatigue, Weakness Eyes: No Symptoms Ears, Nose, & Throat: No Symptoms Respiratory: No Symptoms Cardiac: No Symptoms Abdominal/Gastrointestinal: Abdominal Pain Genitourinary Symptoms: No Symptoms Musculoskeletal: Myalgias Skin: No Symptoms Neurological: No Symptoms Hematologic/Lymphatic: No Symptoms Immunological/Allergic: No Symptoms <JOAN BARNARD - Last Filed: 06/16/23 18:21> - Review of Systems Psychological: No Symptoms Endocrine: No Symptoms <LETTY GALVEZ - Last Filed: 06/17/23 00:51> - Past Medical History Pertinent Past Medical History: Yes Neurological History: Migraines ENT History: Other Cardiac History: Aneurysm, Angina, Coronary Artery Disease, High Cholesterol, Myocardial Infarction (AR) Respiratory History: Asthma, COPD Endocrine Medical History: No Pertinent History Musculoskeletal History: Fractures GI Medical History: Diverticulitis, GERD History: No Pertinent History Psycho-Social History: No Pertinent History Male Reproductive Disorders: No Pertinent History Other Medical History: difficulty hearing, Knee Problems, elephantitis - Past Surgical History Past Surgical History: Yes Neuro Surgical History: No Pertinent History Cardiac: Cardiac Catheterization Respiratory: No Pertinent History Gastrointestinal: No Pertinent History Genitourinary: No Pertinent History Musculoskeletal: Orthopedic Surgery Male Surgical History: No Pertinent History Other Surgical History: back, knee, wrist - Social History Smoking Status: Current every day smoker How long have you smoked: 39 years Exposure to second hand smoke: Yes Alcohol Use: Socially Drug Use: none Patient Lives Alone: No Significant Family History: heart disease, hypertension <JOAN BARNARD - Last Filed: 06/16/23 18:21> - Physical Exam General Appearance: no apparent distress, alert Eye Exam: PERRL/EOMI Ears, Nose, Throat Exam: normal ENT inspection, TMs normal, pharynx normal Neck Exam: normal inspection, non-tender, supple, full range of motion Respiratory Exam: normal breath sounds, lungs clear Cardiovascular Exam: regular rate/rhythm, normal heart sounds Gastrointestinal/Abdomen Exam: soft, normal bowel sounds, No tenderness Back Exam: normal inspection Extremity Exam: normal inspection, normal range of motion, tenderness (Generalized muscle) Neurologic Exam: alert, oriented x 3, cooperative, 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 as tested Skin Exam: normal color SpO2 Interpretation: normal SpO2: 98 O2 Delivery: Room Air <AKILJOAN - Last Filed: 06/16/23 18:21> - Physical Exam General Appearance: no apparent distress, alert Eye Exam: PERRL/EOMI, eyes nml inspection Ears, Nose, Throat Exam: normal ENT inspection, TMs normal, pharynx normal, moist mucous membranes Neck Exam: normal inspection, non-tender, supple, full range of motion Respiratory Exam: normal breath sounds, lungs clear, No respiratory distress Cardiovascular Exam: regular rate/rhythm, normal heart sounds, normal peripheral pulses Gastrointestinal/Abdomen Exam: soft, normal bowel sounds, No tenderness, No mass Rectal Exam: deferred Back Exam: normal inspection, normal range of motion, No CVA tenderness, No vertebral tenderness Extremity Exam: normal inspection, normal range of motion, pelvis stable Neurologic Exam: alert, oriented x 3, cooperative, normal mood/affect, nml cerebellar function, nml station & gait, sensation nml, No motor deficits Skin Exam: normal color, warm, dry, No rash Lymphatic Exam: No adenopathy <LETTY GALVEZ - Last Filed: 06/17/23 00:51> - Nursing Vital Signs Nursing Vital Signs: Initial Vital Signs Temperature 98.6 F 06/16/23 16:45 Pulse Rate 92 H 06/16/23 16:45 Blood Pressure 162/92 06/16/23 16:45 O2 Sat by Pulse Oximetry 98 06/16/23 16:45 Pain Scale Pain Intensity [] 10 Pain Intensity 8 - Course Nursing assessment & vital signs reviewed: Yes - CT Exams Abdomen/Pelvis CT Interpretation: Tele-radiologist Report, Other (new diverticulitis with abscess stable renal and liver cysts per rad read) Chest CT Interpretation: Tele-radiologist Report, Other (T 10 bone island) <LETTY GALVEZ - Last Filed: 06/17/23 00:51> Ordered Tests: Active Orders 24 hr Category Date Time Status IV Insertion STAT Care 06/16/23 17:10 Active ABDOMEN AND PELVIS W CONTRAST [CT] Stat Exams 06/16/23 18:08 Completed CHEST WITH CONTRAST [CT] Stat Exams 06/16/23 18:08 Completed CBC W DIFF Stat Lab 06/16/23 18:04 Completed CK-Creatinine Phosphokinase Stat Lab 06/16/23 17:18 Completed CMP Stat Lab 06/16/23 17:18 Completed SED RATE [Erythrocyte Sedimentation Rate] Stat Lab 06/16/23 17:18 Completed Medication Summary Generic Name Dose Route Start Last Admin Trade Name Terese PRN Reason Stop Dose Admin Hydromorphone HCl 1 mg 06/17/23 00:35 Hydromorphone 1 Mg/1ml Inj IV 06/17/23 00:36 STAT ONE Discontinued Medications Generic Name Dose Route Start Last Admin Trade Name Tanmayq PRN Reason Stop Dose Admin Hydromorphone HCl 1 mg 06/16/23 18:26 06/16/23 18:34 Hydromorphone 1 Mg/1ml Inj IV 06/16/23 18:27 1 mg STAT ONE Administration Hydromorphone HCl Confirm 06/16/23 18:31 Hydromorphone 1 Mg/1ml Inj Administered 06/16/23 18:32 Dose 1 mg .ROUTE .STK-MED ONE Hydromorphone HCl 1 mg 06/16/23 22:23 06/16/23 22:28 Hydromorphone 1 Mg/1ml Inj IV 06/16/23 22:24 1 mg STAT ONE Administration Hydromorphone HCl Confirm 06/16/23 22:27 Hydromorphone 1 Mg/1ml Inj Administered 06/16/23 22:28 Dose 1 mg .ROUTE .STK-MED ONE Sodium Chloride 1,000 mls @ 999 mls/hr 06/16/23 17:10 06/16/23 18:37 Sodium Chloride 0.9% 1000 Ml IV 06/16/23 18:10 Infused .Q1H1M STA Infusion Sodium Chloride Confirm 06/16/23 17:26 Sodium Chloride 0.9% 1000 Ml Administered 06/16/23 17:27 Dose 1,000 mls @ ud .ROUTE .STK-MED ONE Levofloxacin/Dextrose 750 mg in 150 mls @ 100 mls/hr 06/16/23 22:26 06/17/23 00:28 Levofloxacin 750mg/150ml D5w IV 06/16/23 23:55 Infused STAT STA Infusion Metronidazole 500 mg in 100 mls @ 200 mls/hr 06/16/23 22:27 06/16/23 23:36 Flagyl 500 Mg Ivpb IV 06/16/23 22:56 Infused STAT STA Infusion Metronidazole Confirm 06/16/23 22:42 Flagyl 500 Mg Ivpb Administered 06/16/23 22:43 Dose 500 mg in 100 mls @ ud IV .STK-MED ONE Levofloxacin/Dextrose Confirm 06/16/23 22:42 Levofloxacin 750mg/150ml D5w Administered 06/16/23 22:43 Dose 750 mg in 150 mls @ ud IV .STK-MED ONE Ondansetron HCl 4 mg 06/16/23 18:26 06/16/23 18:33 Ondansetron Hcl 4 Mg/2 Ml Vial IV 06/16/23 18:27 4 mg STAT ONE Administration Ondansetron HCl Confirm 06/16/23 18:31 Ondansetron Hcl 4 Mg/2 Ml Vial Administered 06/16/23 18:32 Dose 4 mg .ROUTE .STK-MED ONE Triamcinolone Acetonide 60 mg 06/16/23 17:10 06/16/23 17:29 Triamcinolone Acetonide 40 Mg/Ml Ml IM 06/16/23 17:11 60 mg STAT ONE Administration Triamcinolone Acetonide Confirm 06/16/23 17:26 Triamcinolone Acetonide 40 Mg/Ml Ml Administered 06/16/23 17:27 Dose 80 mg .ROUTE .STK-MED ONE Lab/Rad Data: Laboratory Result Diagrams 06/16/23 18:04 06/16/23 17:18 Laboratory Results 06/16/23 06/16/23 06/16/23 Range/Units 19:00 18:04 17:18 WBC 11.4 H (4.0-10.5) x10^3/uL RBC 4.32 (4.1-5.6) x10^6/uL Hgb 12.8 (12.5-18.0) g/dL Hct 40.0 L (42-50) % MCV 92.6 (78-100) fL MCH 29.6 (26-32) pg MCHC 32.0 (32-36) g/dL RDW 14.0 (11.5-14.0) % Plt Count 259 (150-450) x10^3/uL MPV 10.6 (7.5-11.0) fL Gran % 71.2 H (36.0-66.0) % Immature Gran % (Auto) 0.5 H (0.00-0.4) % Nucleat RBC Rel Count 0.0 (0.00-0.1) % Eos # (Auto) 0.29 (0-0.5) x10^3/uL Immature Gran # (Auto) 0.06 H (0.00-0.03) x10^3u/L Absolute Lymphs (auto) 2.04 (1.0-4.6) x10^3/uL Absolute Monos (auto) 0.81 (0.0-1.3) x10^3/uL Absolute Nucleated RBC 0.00 (0.00-0.01) x10^3u/L Lymphocytes % 18.0 L (24.0-44.0) % Monocytes % 7.1 (0.0-12.0) % Eosinophils % 2.6 (0.00-5.0) % Basophils % 0.6 (0.0-0.4) % Absolute Granulocytes 8.09 H (1.4-6.9) x10^3/uL Basophils # 0.07 (0-0.4) x10^3/uL ESR 128 H (0-15) mm/hr Sodium (137-145) mmol/L Potassium (3.5-5.1) mmol/L Chloride (98-107) mmol/L Carbon Dioxide (22-30) mmol/L Anion Gap (5-15) MEQ/L BUN (9-20) mg/dL Creatinine (0.66-1.25) mg/dL Estimated GFR ML/MIN Glucose (74-106) mg/dL Calcium (8.4-10.2) mg/dL Total Bilirubin (0.2-1.3) mg/dL AST (17-59) U/L ALT (0-50) U/L Alkaline Phosphatase (38-126) U/L Creatine Kinase (55-170) U/L Serum Total Protein (6.3-8.2) g/dL Albumin (3.5-5.0) g/dL Influenza Type A Ag NEGATIVE (NEGATIVE) Influenza Type B Ag NEGATIVE (NEGATIVE) RSV (PCR) NEGATIVE (NEGATIVE) SARS-CoV-2 (PCR) NEGATIVE (NEGATIVE) 06/16/23 Range/Units 17:18 WBC (4.0-10.5) x10^3/uL RBC (4.1-5.6) x10^6/uL Hgb (12.5-18.0) g/dL Hct (42-50) % MCV (78-100) fL MCH (26-32) pg MCHC (32-36) g/dL RDW (11.5-14.0) % Plt Count (150-450) x10^3/uL MPV (7.5-11.0) fL Gran % (36.0-66.0) % Immature Gran % (Auto) (0.00-0.4) % Nucleat RBC Rel Count (0.00-0.1) % Eos # (Auto) (0-0.5) x10^3/uL Immature Gran # (Auto) (0.00-0.03) x10^3u/L Absolute Lymphs (auto) (1.0-4.6) x10^3/uL Absolute Monos (auto) (0.0-1.3) x10^3/uL Absolute Nucleated RBC (0.00-0.01) x10^3u/L Lymphocytes % (24.0-44.0) % Monocytes % (0.0-12.0) % Eosinophils % (0.00-5.0) % Basophils % (0.0-0.4) % Absolute Granulocytes (1.4-6.9) x10^3/uL Basophils # (0-0.4) x10^3/uL ESR (0-15) mm/hr Sodium 139 (137-145) mmol/L Potassium 3.6 (3.5-5.1) mmol/L Chloride 107 (98-107) mmol/L Carbon Dioxide 21 L (22-30) mmol/L Anion Gap 13.9 (5-15) MEQ/L BUN 14 (9-20) mg/dL Creatinine 0.59 L (0.66-1.25) mg/dL Estimated GFR 116.0 ML/MIN Glucose 172 H (74-106) mg/dL Calcium 9.6 (8.4-10.2) mg/dL Total Bilirubin 0.50 (0.2-1.3) mg/dL AST 25 (17-59) U/L ALT 33 (0-50) U/L Alkaline Phosphatase 126 (38-126) U/L Creatine Kinase 22 L (55-170) U/L Serum Total Protein 8.1 (6.3-8.2) g/dL Albumin 3.9 (3.5-5.0) g/dL Influenza Type A Ag (NEGATIVE) Influenza Type B Ag (NEGATIVE) RSV (PCR) (NEGATIVE) SARS-CoV-2 (PCR) (NEGATIVE) - Progress Counseled pt/family regarding: lab results, diagnosis, need for follow-up, smoking cessation <JOAN BARNARD - Last Filed: 06/16/23 18:21> - Progress Progress: improved, re-examined Counseled pt/family regarding: lab results, diagnosis, need for follow-up, rad results <LETTY GALVEZ - Last Filed: 06/17/23 00:51> - Progress Progress Note: 06/16/23 18:34 51 years old male with history of psoriasis, tobacco abuse presented in the ER with aches and pains all over for over 5 weeks. Patient has been evaluated in this ER twice with elevated ESR, was given steroids and has been taking ketorolac outpatient along with muscle relaxant but no significant relief. Patient reports having night sweats, subjective feeling of fever and chills with some tightness in the abdomen but no chest pain palpitations or shortness of breath. Patient reports having difficulty movements of arms above his head and also feels pain with activity/ambulation in the lower extremities. No swelling or trauma reported. Denies any weight loss. He is given fluid bolus along with Kenalog and Dilaudid for symptomatic relief. Workup showed white count of 11, chemistries fairly unremarkable except for sed rate of 128. It was 108 few weeks ago. Patient does not have any joint swelling or specific joint tenderness. Generalized muscle aches. It could be muscular dystrophy but patient has normal CK level. It could be infectious versus inflammatory versus malignancy. I will obtain CTs abdomen pelvis and chest to make sure patient does not have any acute process going on. I have discussed with Dr. Galvez relieving physician and care is transfer for reevaluation and final disposition. (JOAN BARNARD) 06/16/23 20:[address] Barnard at change of shift after discussion with pt and Dr. about need to check/recheck CT and if response is good and no change will plan to continue plan to see rheum for further w/u. Covid also requested adn plan to continue dospak after risks/benefits discussed and they wish to proceed with all this and have the capacity to make this choice. Ordered and results discussed. 06/16/23 20:08 Discussed /offered admission and fact that we do not have a diagnosis and that pathology of serious nature may still be evolving undetected. with pt and spouse and they feel better now and wish to continue with plan for outpt f/u and have the capacity to make this choice. 06/16/23 23:35 discussed new possible abscess with pt and he wishes to begin AB - also he will allow consult with hospitalist to consider admission. 06/16/23 23:[address] Nunu Alanis our hospitalist and the pt should be able to be managed as outp for his new diverticular abscess and f/u as outpt , not meeting criteria for admission at this point. 06/17/23 00:36 pts pain improved on Tx . He feels ready for DC. We discussed more steroids, but after discussion of some increase for infection risk with another dospak , he will consult first with his Drs. 06/17/23 00:36 (LETTY GALVEZ) Medical Desision Making - Independent Historian Additional History obtained from: Spouse - Discussion of managment Care discussed with:: hospitalist Reviewed:: Test results, Need for additional workup Agreed on:: Treatment plan, need for follow-up - Diagnostic Testing Diagnostic test were ordered, analyzed, and reviewed by me: Yes Radiological Interpretation: Reviewed by me, Teleradiologist Report - Risk of complications The pt has a mod risk of morbidity or mortality based on: Need for prescription drug management The pt has a high risk of morbidity or mortality based on: Decision regarding hospitilization or escalation of hosp level of care <LETTY GALVEZ - Last Filed: 06/17/23 00:51> <JOAN BARNARD - Last Filed: 06/16/23 18:21> - Departure Critical Care Time: No <LETTY GALVEZ - Last Filed: 06/17/23 00:51> - Departure Clinical Impression: Poly myagia syndrome, diverticular abscess Condition: Good Referrals: ESE MARRERO MD [Primary Care Provider] - Follow up/PCP as directed Instructions: Diverticulitis (DC), Chronic Pain (DC) Additional Instructions: followup with your Dr as discussed to explore options for additional rheumatology referrals such as at [facility] and to followup your diverticulitis. There may be additional conditions undetected to better explain your symptoms so the further workup will be helpful. Return meantime if not improving or other concerns or symptoms. Also followup your blood pressure slightly elevated with your Dr. Prescriptions: Metronidazole 500 mg [Flagyl 500 MG] 500 mg PO QID #40 tablet Levofloxacin [Levofloxacin 250MG Tablet] 750 mg PO DAILY #30 tab
[2023-06-16] MEDS ORDERED: Zofran 4 MG/2 ML VIAL ONE (18:31)
[2023-06-16] MEDS ORDERED: Hydromorphone 1 mg/ml Injection ONE ×2 (18:31→22:27)
[2023-06-16 19:41] LABS: INFLUENZA A NEGATIVE (NEGATIVE); INFLUENZA B NEGATIVE (NEGATIVE); RESPIRATORY SYNCTIAL VIRUS NEGATIVE (NEGATIVE); SARS-CoV-2 Xpert Express NEGATIVE (NEGATIVE)
--- NOTE | 2023-06-16 22:05 | XRAY ---
Indication: General pain. Multiple contiguous axial images obtained through the chest using 80 cc Isovue 370 contrast. Comparison: None Lungs demonstrates mild bilateral dependent atelectasis. No suspicious pulmonary mass/nodule, infiltrate, or effusion. Heart not enlarged. Aorta is normal in course and caliber. No pathologic mediastinal/hilar lymphadenopathy. Bony thorax intact with 5 mm round T10 sclerotic lesion probable bone island. CT abdomen/pelvis reported separately. Impression: Tiny T10 bone island. Remaining CT chest with contrast exam is negative.
--- NOTE | 2023-06-16 22:11 | XRAY ---
Indication: General pain. Multiple contiguous axial images obtained through the abdomen and pelvis using 80 cc Isovue 370 contrast. Comparison: September 30, 2022 CT chest reported separately. Stomach distended with food/fluid. Noncontrasted bowel loops appear nonobstructed with normal appendix. There is now mild/moderate diffuse scattered colonic fecal debris throughout with mild rectal impaction. Again scattered colonic diverticulosis with new diverticulitis mid sigmoid colon. Irregular 4.2 x 3.5 x 3.0 cm fluid collection immediately anterior to diverticulitis possible developing abscess. No free air. Stable tiny hepatic cyst and small right renal cysts. Remaining liver, gallbladder, pancreas, spleen, adrenal glands, kidneys, ureters, bladder, and aorta are unremarkable. No pathologic retroperitoneal lymphadenopathy. Osseous structures intact again with mild L4-S1 degenerative disc disease. Impression: 1. Again scattered colonic diverticulosis. New mid sigmoid diverticulitis with small fluid collection anteriorly possible developing abscess. 2. New diffuse fecal stasis with mild rectal impaction. 3. Stable hepatic/right renal cysts and lower lumbar degenerative changes.
[2023-06-16] MEDS ORDERED: LEVOFLOXACIN 750MG/150ML D5W 750 MG/150 ML BAG IV STA (22:26)
[2023-06-16] MEDS ORDERED: FLAGYL 500 MG IVPB 500 MG/100 ML BAG IV STA (22:27)
[2023-06-16] MEDS ORDERED: FLAGYL 500 MG IVPB 500 MG/100 ML BAG IV ONE (22:42)
[2023-06-16] MEDS ORDERED: LEVOFLOXACIN 750MG/150ML D5W 750 MG/150 ML BAG IV ONE (22:42)
[2023-06-17] MEDS ORDERED: Hydromorphone 1 mg/ml Injection IV ONE (00:35)
[2023-06-17] MEDS ORDERED: Hydromorphone 1 mg/ml Injection ONE (00:37)
[2023-06-17 01:03] VITALS: BP 129/99; PULSE 86; RESP 18; O2SAT 98
== END 2023-06-17 01:03 | disposition home or self-care (01) ==
LOC: ED 16:34
DX: M35.3 Polymyalgia rheumatica (principal); K57.80 Diverticulitis of intestine, part unspecified, with perforation and abscess without bleeding; E78.5 Hyperlipidemia, unspecified; Z72.0 Tobacco use; Z20.828 Contact with and (suspected) exposure to other viral communicable diseases
CPT/HCPCS: 0241U; 36000; 36415; 71260; 74177; 80053; 82550; 85025; 85652; 96360; 96361; 96365; 96372; 96374; 96375; 96376; 99285; J1170; J1956; J2405; J3301

== ENCOUNTER 2024-09-04 11:33 | Day surgery (SDC) | payer MEDICARE, BC ==
[2013-03-16 16:49] VITALS: BP 131/88
[2024-09-04] MEDS ORDERED: Depo-Medrol 40 MG/ML IM ONE (11:34)
[2024-09-04] MEDS ORDERED: BUPIVACAINE 0.5% VIAL IJ ONE (11:34)
[2024-09-04] MEDS ORDERED: propofoL IV ONE (14:38)
--- NOTE | 2024-09-04 17:07 | XRAY ---
Indication: Left shoulder and subacromial bursa injection. Intraoperative fluoroscopy provided for 9 seconds. 2 digital spot image submitted for interpretation demonstrates needle tip projecting over left glenohumeral joint superiorly. Second needle tip subacromial. Small amount of contrast injected for all needle tip placement. Correlate with intraoperative findings/report.
--- NOTE | 2024-09-04 17:09 | XRAY ---
9 seconds of fluoroscopy was used in surgery for a left intra-articular shoulder and subacromial bursa injection.
== END 2024-09-04 15:16 | disposition home or self-care (01) ==
LOC: SDC-PAIN 11:33
PROVIDERS: ATTEND Psychiatry & Neurology Pain Medicine
DX: M19.012 Primary osteoarthritis, left shoulder (principal); M75.52 Bursitis of left shoulder
CPT/HCPCS: 20610; 73030; 77002; J2704; Q9966

== ENCOUNTER 2024-10-02 10:33 | Day surgery (SDC) | payer MEDICARE, BC ==
[2013-03-16 16:49] VITALS: BP 131/88
[2024-10-02] MEDS ORDERED: BUPIVACAINE 0.5% VIAL IJ ONE (10:34)
[2024-10-02] MEDS ORDERED: Depo-Medrol 40 MG/ML IM ONE (10:34)
[2024-10-02] MEDS ORDERED: propofoL IV ONE (13:43)
--- NOTE | 2024-10-02 14:44 | XRAY ---
Indication: Right shoulder and subacromial bursa injection. Intraoperative fluoroscopy provided for 10 seconds. 2 digital spot image submitted for interpretation demonstrates needle tip projecting over right glenohumeral joint superiorly. Second needle tip subacromial. Small amount of contrast injected for needle tip placement. Correlate with intraoperative findings/report.
--- NOTE | 2024-10-02 14:44 | XRAY ---
10 seconds of fluoroscopy was used in surgery for a right intra-articular shoulder and subacromial bursa injection.
== END 2024-10-02 14:16 | disposition home or self-care (01) ==
LOC: SDC-PAIN 10:33
PROVIDERS: ATTEND Psychiatry & Neurology Pain Medicine
DX: M19.011 Primary osteoarthritis, right shoulder (principal); M75.51 Bursitis of right shoulder
CPT/HCPCS: 20610; 73030; 77002; J2704; Q9966